=== PATIENT | female | born 1945 | race Caucasian/White ===

== ENCOUNTER 2017-12-08 21:49 | Emergency (ER) | payer MEDICARE ==
[2017-12-08] MEDS ORDERED: Amoxicillin/Clavulanate TAB* 875 MG PO ONE (22:05)
[2017-12-09 01:22] VITALS: BP 148/87
--- NOTE | 2017-12-10 11:22 | ED ---
Everette Rabago Rebecca, scribed for Jose Luis Moralez MD on 12/08/17 at 2219 . Lower Extremity - HPI Summary HPI Summary: Pt is a 72 y/o F BIBA who presents to ED c/o LLE laceration s/p fall. Pt reports that tonight she was about to have dinner when she fell on her end table , causing a laceration. Reports she could not get the bleeding to stop, which is why she called her [id number] who called EMS. Patient was able to get herself up after the fall. Negative head trauma. Denies CP, SOB, abdominal pain and LOC. Confirms her Tetanus is UTD and she is not on blood thinners. PMHx Parkinsons. - History of Current Complaint Chief Complaint: EDSoftTissueLowExtr Stated Complaint: LT LEG LAC Time Seen by Provider: 12/08/17 21:52 Hx Obtained From: Patient Mechanism Of Injury: Fall From A Standing Position Onset of Pain: Prior to Arrival Severity Currently: Moderate Pain Intensity: 4 Pain Scale Used: 0-10 Numeric Location: Is Discrete @ - Left lower extremity Associated Signs And Symptoms: Positive: Other - Laceration - Allergies/Home Medications Allergies/Adverse Reactions: Allergies Allergy/AdvReac Type Severity Reaction Status Date / Time No Known Allergies Allergy Verified 05/11/15 10:31 PMH/Surg Hx/FS Hx/Imm Hx Endocrine/Hematology History: Reports: Hx Diabetes - ON ORAL MEDS, Hx Thyroid Disease - ON SYNTHROID Cardiovascular History: Reports: Hx Angina Denies: Hx Hypertension, Hx Pacemaker/ICD Respiratory History: Reports: Hx Asthma - COPD GI History: Reports: Hx Hiatal Hernia - ON DAILY MEDS Musculoskeletal History: Reports: Hx Arthritis - GENERALIZED, Hx Bursitis - BACK Sensory History: Reports: Hx Cataracts - BILATERAL Denies: Hx Hearing Aid Opthamlomology History: Reports: Hx Cataracts - BILATERAL Neurological History: Denies: Other Neuro Impairments/Disorders Psychiatric History: Reports: Hx Anxiety - ON DAILY MEDS, Hx Panic Disorder - Surgical History Surgery Procedure, Year, and Place: 2005 LIVER BIOPSY [place]. 1994 DEVIATED SEPTUM [id number]. BILATERAL ORIF [place] 2005 Hx Anesthesia Reactions: No - Immunization History Date of Tetanus Vaccine: 2015 Infectious Disease History: No Infectious Disease History: Denies: Traveled Outside the [place] in Last 30 Days - Family History Known Family History: Positive: Diabetes, Other - Glaucoma - Social History Alcohol Use: None Substance Use Type: Reports: None Smoking Status (MU): Never Smoked Tobacco Type: Cigarettes Amount Used/How Often: 1/2PPWEEK 30 YRS Have You Smoked in the Last Year: No Review of Systems Negative: Chest Pain Negative: Shortness Of Breath Negative: Abdominal Pain Positive: Other - LLE laceration Neurological: Other - NEGATIVE: LOC All Other Systems Reviewed And Are Negative: Yes Physical Exam - Summary Physical Exam Summary: Appearance: Well appearing, no pain distress Skin: warm, dry, 7 cm. linear laceration to the anterior distal left lower leg, bleeding has stopped and she has soft tissue fat protruding from the wound with some ecchymosis surrounding it Head/face: normal, no evidence of trauma to the head, no hematoma Eyes: EOMI, FACUNDO ENT: normal Neck: supple, non-tender Respiratory: CTA, breath sounds present Cardiovascular: RRR, pulses symmetrical Abdomen: non-tender, soft Bowel Sounds: present Musculoskeletal: strength/ROM intact, no resting tremor, no pain with leg roll, chronic edema in both LE Neuro: normal, sensory motor intact, A&Ox3 Triage Information Reviewed: Yes Vital Signs On Initial Exam: Initial Vitals Temp Pulse Resp BP Pulse Ox 98.0 F 71 15 111/53 95 12/08/17 22:07 12/08/17 22:07 12/08/17 22:07 12/08/17 22:07 12/08/17 22:07 Vital Signs Reviewed: Yes Procedures - Laceration/Wound Repair 1 Location: lower extremity - Left lower extremity Description: Linear Anesthesia: 1.0%, Lido - 5 cc Length, Depth and Shape: 7 cm Betadine Prep?: No - chlorhexidine Irrigated w/ Saline (ccs): 500 Laceration/Wound Explored: clean, no foreign body removed Closure: Multilayer Debridement: minimal - fat debridement Suture Type: Vicryl - 4 3-0 vicryl sutures on the subcutaneous layer; 12 vertical mattress sutures of 3-0 Prolene for the skin Layer Closure?: Yes Sterile Dressing Applied?: Yes - Xeroform gauze then 4x4 guaze, roll gauze and then coved with Coban. Diagnostics - Vital Signs Vital Signs Temp Pulse Resp BP Pulse Ox 12/08/17 22:07 98.0 F 71 15 111/53 95 - Laboratory Lab Statement: Any lab studies that have been ordered have been reviewed, and results considered in the medical decision making process. Lower Extremity Course/Dx - Course Course Of Treatment: Pt with injury to LLE on table edge lacerating the low anterior horvath. Td utd. Wound irrigated and repaired in layers. Complex repair given the area of laceration and the thin skin. Required dermal closure and wide vert mattress sutures. - Diagnoses Provider Diagnoses: Laceration of left lower extremity Discharge - Sign-Out/Discharge Documenting (check all that apply): Discharge - Discharge - Discharge Plan Condition: Good Disposition: HOME Prescriptions: Cephalexin CAP* [Keflex CAP*] 500 mg PO TID #30 cap Patient Education Materials: Laceration (ED) Referrals: Charlie Jeter MD [Primary Care Provider] - Additional Instructions: Suture removal in 14 days. Change dressing in 2 days then daily thereafter. Keep clean and dry. Return with concern for infection, worse or other concerns. It will turn black and blue. - Billing Disposition and Condition Condition: GOOD Disposition: HOME The documentation as recorded by the Everette villanueva Rebecca accurately reflects the service I personally performed and the decisions made by Naomy bradford Kirk, MD.
== END 2017-12-09 | disposition home or self-care (01) ==
LOC: ED 21:49
DX: S81.812A Laceration without foreign body, left lower leg, initial encounter (principal); W18.09XA Striking against other object with subsequent fall, initial encounter; Y93.89 Activity, other specified; Y92.009 Unspecified place in unspecified non-institutional (private) residence as the place of occurrence of the external cause; G20 Parkinson's disease; E11.9 Type 2 diabetes mellitus without complications; Z79.84 Long term (current) use of oral hypoglycemic drugs; E07.9 Disorder of thyroid, unspecified; I20.9 Angina pectoris, unspecified; J44.9 Chronic obstructive pulmonary disease, unspecified; K44.9 Diaphragmatic hernia without obstruction or gangrene; F41.0 Panic disorder [episodic paroxysmal anxiety]
CPT/HCPCS: 13121; 99282; A9270-GY

== ENCOUNTER 2018-07-22 12:31 | Emergency (ER) | payer MEDICARE ==
--- OUTSIDE RECORDS SUMMARY | 2018-07-22 12:48 | XMS REPORT ---
:1945 Author Organization [facility] Address [address] [place] [address] Care Team Providers Name Role Phone Demarco Boyle Unavailable Unavailable PROBLEMS Type Condition ICD9-CM Code TUQ29-DY Code Onset Condition SNOMED Code Dates Status Problem Hypothyroidism, E03.9 Active 95533652 unspecified type Problem Depression, F32.9 Active 18602369 unspecified depression type Problem Insomnia, G47.00 Active 405219857 unspecified type Problem Tinea corporis B35.4 Active 49678156 Problem Pancytopenia D61.818 Active 031350522 Problem Uncomplicated J45.909 Active 23266749 asthma, unspecified asthma severity Problem Parkinsons disease G20 Active 06959463 Problem Obesity, morbid, E66.01 Active 678344139 BMI 50 or higher Problem Body mass index Z68.43 Active 584394313 (BMI) of 50-59.9 in adult Problem Essential I10 Active 98591651 hypertension Problem Chronic gout of M1A.0790 Active 32413988 foot, unspecified cause, unspecified laterality Problem Traumatic S06.300S Active 89392511 intracranial hemorrhage without loss of consciousness, sequela Problem Nerve pain M79.2 Active 88565224 Problem Chronic GERD K21.9 Active 245875625 Problem Personal history Z86.69 Active 608854694 of seizure disorder Problem Type 2 diabetes E11.9 Active 460162456 mellitus without complication, without long-term current use of insulin ALLERGIES No Information ENCOUNTERS Encounter Location Date Diagnosis [facility] [address] [facility] [address], [place] [address] Jun, [place] [address] [facility] [address] [facility] [place] [address] [facility] [address] [facility] [place], Jun, Type 2 [place] [address] without complication, without long-term current use of insulin E11.[address] Jun, Type 2 [place] [address] without complication, without long-term current use of insulin E11.9 [facility] [address] [place] [address] [place], [place] [address] [facility] [address] [place] [address] [place], Jun, Type 2 [place] [address] without complication, without long-term current use of insulin E11.9 ; Parkinsons disease G20 ; Essential hypertension I10 ; Obesity, morbid, BMI 50 or higher E66.01 and Body mass index (BMI) of 50-59.9 in adult Z68.43 [facility] [address] [place] [address] [place], [place] [address] [facility] [address] [place], [place], [facility] [place] [address] [facility] [address] [place] [address] [place] [address] [place] [address] [facility] [address] [place] [address] [place] [address] [facility] [address] [place] [address] [place] [address] Feb, [place] [address] [facility] [address] [place] [address] [place], [place] [address] Jan, [place] [address] Jan, [place] [address] [facility] [address] [facility] Jan, [place] [address] [facility] [address] [facility] Jan, [place] [address] [place], Jan, Type 2 [place] [address] without complication, without long-term current use of insulin E11.9 ; Parkinsons disease G20 ; Essential hypertension I10 ; Uncomplicated asthma, unspecified asthma severity J45.909 ; Depression, unspecified depression type F32.9 ; Obesity, morbid, BMI 50 or higher E66.01 and Body mass index (BMI) of 50-59.9 in adult Z68.43 [facility] [address] [place] [address] [place], [place] [address] Jan, [place] [address] [facility] [address] [place] [address] [address] December, [place] [address] [facility] [address] [place] [address] [place], [place] [address] December, [place] [address] [place] [address] [place] [address], [place] [address] [place], December, [place] [address] leg, subsequent encounter S81.812D ; Risk for falls Z91.81 ; Type 2 diabetes mellitus without complication, without long-term current use of insulin E11.9 ; Screening for breast cancer Z12.31 ; Screening for colon cancer Z12.11 and Osteoporosis screening Z13.820 [facility] [address] [place] [address], [place] [address] Nov, [place] [address] Nov, [facility] [address] [place], Nov, [place] [address] extremity, subsequent encounter S81.812D ; Dependent edema R60.9 and At risk for fall due to comorbid condition Z91.[address] Nov, [place] [address] Nov, [place] [address] [facility] [address] [place] [address] [place], [place] [address] Nov, [facility] [place] [address] [facility] [address] [place] [address] [place], [place] [address] [place], Oct, Injury [place] [address] encounter [address]90XA [address] [place], [place] [address] [place], Oct, Injury [place] [address] encounter S09.90XA ; Fall, initial encounter W19.XXXA and Pitting edema R60.9 [facility] [address] [place] [address] Sep, [place] [address] [facility] [address] [place] [address] Sep, [place] [address] Aug, Dependent edema R60.9 [facility] [place] [address] [place], Aug, Dependent [place] R60.9 [place] [address] [place], Aug, Dependent edema R60.9 [place] [address] Risk for falls Z91.[address] [place], [place] [address] [place], [place] [address] Aug, [place] [address] Jul, [facility] [place] [address] Jul, [facility] [place] [address] [place], [place] [address] [place], Jul, [place], [place] [address] [address] [place], Jul, Type 2 [place] [address] without complication, without long-term current use of insulin E11.9 ; Hypothyroidism, unspecified type E03.9 ; Pancytopenia D61.818 ; Dependent edema R60.9 ; Screening, lipid Z13.220 and Parkinsons disease G20 [address] Jun, [place] [address] [facility] [address] [place] [address] [address] [place] [address] [place], [facility] [place] [address] Jun, [facility] [place] [address] [place], [place] [address] [place], Jun, Pancytopenia D61.818 [place] [address] [facility] [address] [facility] May, [place] [address] [place], May, T[place] B35.4 [place] [address] [place], May, [place] [address] complication B02.9 ; Pancytopenia D61.818 ; Tinea corporis B35.4 and Elevated BUN R79.[address] [place], Apr, [place] [address] complication B02.9 [facility] [address] [place] [address] [address] [place] [address] [place], [place] [address] [place], Apr, Parkinsons disease G20 ; [place] [address] Left upper quadrant pain R10.12 ; Essential hypertension I10 ; Type 2 diabetes mellitus without complication, without long-term current use of insulin E11.9 ; Hypothyroidism, unspecified type E03.9 ; Morbid (severe) obesity due to excess calories E66.01 and Body mass index (BMI) of 50-59.9 in adult Z68.[address] Apr, [facility] [place] [address] [place] [address] [place], [facility] [place] [address] [place], [place] [address] [place], [place] [address] [place], Insomnia, unspecified type [facility] [place] [address] G47.00 ; Essential hypertension I10 ; Depression, unspecified depression type F32.9 ; Type 2 diabetes mellitus without complication, without long-term current use of insulin E11.9 ; Chronic gout of foot, unspecified cause, unspecified laterality M1A.0790 ; Parkinsons disease G20 ; Uncomplicated asthma, unspecified asthma severity J45.909 ; Hypothyroidism, unspecified type E03.9 ; Chronic GERD K21.9 ; Personal history of seizure disorder Z86.69 and Nerve pain M79.[address], [place], [address], [place], Encounter to establish [facility] care Z76.89 ; Type 2 diabetes mellitus without complication, without long-term current use of insulin E11.9 ; Traumatic intracranial hemorrhage without loss of consciousness, sequela S06.300S ; Parkinsons disease G20 ; Hypothyroidism, unspecified type E03.9 ; Chronic gout of foot, unspecified cause, unspecified laterality M1A.0790 ; Depression, unspecified depression type F32.9 ; Essential hypertension I10 ; Insomnia, unspecified type G47.00 ; Nerve pain M79.2 ; Personal history of seizure disorder Z86.69 ; Chronic GERD K21.9 and Uncomplicated asthma, unspecified asthma severity J45.909 IMMUNIZATIONS No Known Immunizations SOCIAL HISTORY Never Assessed REASON FOR REFERRAL FUNCTIONAL STATUS PLAN OF CARE VITAL SIGNS MEDICATIONS Unknown Medications PROCEDURES No Known procedures RESULTS No Results REASON FOR VISIT labs Insurance Providers [facility] Health Member Patient Patient Patient Patient Patient Subscriber Subscriber Subscriber Group Insurance Plan Plan Plan Plan ID Relationship Address Phone Name Date of ID Name Date of No Type Insurance Insurance Insurance Coverage to Subscriber Address Phone Name Dates Case [phone] Case self Mandy [id number] Management [place] [phone] [facility] self Mandy [id number] Medicare [id number] Medicare [place] [employer] [place] [employer] RPPO [id number] RPPO Case Man [phone] Case Man self Mandy [id number] [facility] [place] [address] [place] [address] [employer] Voucher Case [phone] Case self Mandy [id number] Management [place] [address] MEDICAL (GENERAL) HISTORY Type Description Date Medical History diabetes type 2 Medical History hearing aids Medical History "brain bleed" 07/2016 Medical History Parkinson's Medical History Depression Surgical History both legs surgery, fractured on a fall on stairs 2001 Hospitalization History of child
--- OUTSIDE RECORDS SUMMARY | 2018-07-22 12:48 | XMS REPORT ---
:1945 Author Organization [facility] Address [address] [place] [address] Care Team Providers Name Role Phone Demarco Boyle Unavailable Unavailable PROBLEMS Type Condition ICD9-CM Code [id number] Code Onset Condition SNOMED Code Dates Status Problem Hypothyroidism, E03.9 Active 82615136 unspecified type Problem Depression, F32.9 Active 74360597 unspecified depression type Problem Insomnia, G47.00 Active 360641355 unspecified type Problem Tinea corporis B35.4 Active 34500660 Problem Pancytopenia D61.818 Active 285608638 Problem Uncomplicated J45.909 Active 18941148 asthma, unspecified asthma severity Problem Parkinsons disease G20 Active 65469744 Problem Obesity, morbid, E66.01 Active 237865664 BMI 50 or higher Problem Body mass index Z68.43 Active 256397232 (BMI) of 50-59.9 in adult Problem Essential I10 Active 73425548 hypertension Problem Chronic gout of M1A.0790 Active 62801453 foot, unspecified cause, unspecified laterality Problem Traumatic S06.300S Active 31121205 intracranial hemorrhage without loss of consciousness, sequela Problem Nerve pain M79.2 Active 97571076 Problem Chronic GERD K21.9 Active 733798545 Problem Personal history Z86.69 Active 890300423 of seizure disorder Problem Type 2 diabetes E11.9 Active 029351498 mellitus without complication, without long-term current use of insulin ALLERGIES No Information ENCOUNTERS Encounter Location Date Diagnosis [facility] [address] [facility] Jun, [place] [address] Jun, [place] [address] [facility] [address] [facility] [place] [address] [facility] [address] [facility] [place], Jun, Type 2 [place] [address] without complication, without long-term current use of insulin E11.[address] Jun, Type 2 [place] [address] without complication, without long-term current use of insulin E11.9 [facility] [address] [place] [address] [place], [place] [address] [facility] [address] [place] [address] [place], Jun, [place] 2 [place] [address] without complication, without long-term current use of insulin E11.9 ; Parkinsons disease G20 ; Essential hypertension I10 ; Obesity, morbid, BMI 50 or higher E66.01 and Body mass index (BMI) of 50-59.9 in adult Z68.43 [facility] [address] [place] [address] [place], [place] [address] [facility] [address] [place], Mar, [place] [address] [facility] [address] [place] [address] [place] [address] [place], [place] [address] [facility] [address] [place] [address] [place], [place] [address] [facility] [address] [place] [address] [place], [place] [address] Feb, [place] [address] [facility] [address] [place] [address] [place] [address] Jan, [place] [address] Jan, [place] [address] [facility] [address] [facility] Jan, [place] [address] [facility] [address] [facility] Jan, [place] [address] [place], Jan, [place] 2 [place] [address] without complication, without long-term current use of insulin E11.9 ; Parkinsons disease G20 ; Essential hypertension I10 ; Uncomplicated asthma, unspecified asthma severity J45.909 ; Depression, unspecified depression type F32.9 ; Obesity, morbid, BMI 50 or higher E66.01 and Body mass index (BMI) of 50-59.9 in adult Z68.43 [facility] [address] [place] [address] [place], [place] [address] Jan, [place] [address] [facility] [address] [place] [address] [address] December, [place] [address] [facility] [address] [place] [address] [place], [place] [address] December, [place] [address] [place] [address] [place] [address], [place] [address] [place], [place], [place] [address] leg, subsequent encounter S81.812D ; Risk for falls Z91.81 ; Type 2 diabetes mellitus without complication, without long-term current use of insulin E11.9 ; Screening for breast cancer Z12.31 ; Screening for colon cancer Z12.11 and Osteoporosis screening Z13.820 [facility] [address] [place] [address], [place] [address] Nov, [place] [address] Nov, [facility] [address] [place], Nov, [place] [address] extremity, subsequent encounter S81.812D ; Dependent edema R60.9 and At risk for fall due to comorbid condition Z91.[address] Nov, [place] [address] Nov, [place] [address] [facility] [address] [place] [address] [place], [place] [address] Nov, [facility] [address] [facility] [address] [place] [address] [place], [place] [address] [place], Oct, [place] [address] encounter S09.90XA [address] [place], [place] [address] [place], Oct, [place] [address] encounter S09.90XA ; Fall, initial encounter W19.XXXA and Pitting edema R60.9 [facility] [address] [place] [address] Sep, [place] [address] [facility] [address] [place] [address] Sep, [place] [address] Aug, Dependent edema R60.9 [facility] [place] [address] [place], Aug, D[place] R[place] [address] [place], Aug, Dependent edema R60.9 [place] [address] Risk for falls Z91.[address] [place], [place] [address] [place], [place] [address] Aug, [place] [address] Jul, [facility] [place] [address] Jul, [place] [address] [place], [place] [address] [place], Jul, [place], [place] [address] [place], Jul, Type 2 [place] [address] without complication, without long-term current use of insulin E11.9 ; Hypothyroidism, unspecified type E03.9 ; Pancytopenia D61.818 ; Dependent edema R60.9 ; Screening, lipid Z13.220 and Parkinsons disease G20 [address] Jun, [place] [address] [facility] [address] [place] [address] [address], [address] [place] [address] [place], [facility] [place] [address] Jun, [facility] [place] [address] [place], [place] [address] [place], Jun, [place] D61[place] [address] [facility] [address] [facility] May, [place] [address] [place], May, [place] [address] [place], May, [place] [address] complication B02.9 ; Pancytopenia D61.818 ; Tinea corporis B35.4 and Elevated BUN R79.[address] [place], Apr, [place] [address] complication B02.9 [facility] [address] [place] [address] [address] Apr, [address] [place] [address] [place], [place] [address] [place], Apr, Parkinsons disease G20 ; [place] [address] Left upper quadrant pain R10.12 ; Essential hypertension I10 ; Type 2 diabetes mellitus without complication, without long-term current use of insulin E11.9 ; Hypothyroidism, unspecified type E03.9 ; Morbid (severe) obesity due to excess calories E66.01 and Body mass index (BMI) of 50-59.9 in adult Z68.[address] [place] Apr, [place] [address] [place] [address] Mar, [facility] [place] [address] [place], [place] [address] [place], [place] [address] Mar, Insomnia, unspecified type [facility] [place] [address] G47.00 ; Essential hypertension I10 ; Depression, [...] seizure disorder Z86.69 and Nerve pain M79.[address], Mar, [address], Mar, Encounter to establish [place] [address] care Z76.89 ; Type 2 diabetes mellitus [...] FOR REFERRAL FUNCTIONAL STATUS PLAN OF CARE Activity Details Pending Test -CBC W/ DIFF and PLT Pending Test -COMPREHENSIVE METABOLIC PANEL W/EGFR VITAL SIGNS MEDICATIONS Medication Instructions Dosage Frequency Start End Date Duration Status Date MetFORMIN HCl Orally Once a day 1 tab(s) 24h 30 day(s) Active ER 500 mg Furosemide 40 Orally Once a day 1 tablet 24h 30 days Active mg PROCEDURES No Known procedures RESULTS No Results REASON FOR VISIT med refill Insurance Providers [facility] Member Patient Patient Patient Patient Patient Subscriber Subscriber Subscriber Group Insurance Plan Plan Plan Plan ID Relationship Address Phone Name Date of ID Name Date of No Type Insurance Insurance Insurance Coverage to Subscriber Address Phone Name Dates Case [phone] Case self Mandy [id number] Management [place] [address] Case [phone] Case self Mandy [id number] [facility] [place] [address] Case Man [phone] Case Man self Mandy [id number] [employer] [place] [address] [place] [address] [employer] Voucher Voucher [facility] [phone] [facility] self Mandy [id number] Medicare [id number] Medicare [place] [employer] [facility] Solutions RPPO [id number] RPPO MEDICAL (GENERAL) HISTORY Type Description Date Medical History diabetes type 2 Medical History hearing aids Medical History "brain bleed" 07/2016 Medical History Parkinson's Medical History Depression Surgical History both legs surgery, fractured on a fall on stairs 2001 Hospitalization History of child
--- OUTSIDE RECORDS SUMMARY | 2018-07-22 12:48 | XMS REPORT ---
:1945 Author Organization [facility] Address [address] [place] [address] Care Team Providers Name Role Phone Demarco Boyle Unavailable Unavailable PROBLEMS Type Condition ICD9-CM Code [id number] Code Onset Condition SNOMED Code Dates Status Problem Hypothyroidism, E03.9 Active 37616507 unspecified type Problem Depression, F32.9 Active 87853945 unspecified depression type Problem Insomnia, G47.00 Active 041013191 unspecified type Problem Tinea corporis B35.4 Active 73943583 Problem Pancytopenia D61.818 Active 310228513 Problem Uncomplicated J45.909 Active 61682429 asthma, unspecified asthma severity Problem Parkinsons disease G20 Active 09483689 Problem Obesity, morbid, E66.01 Active 599091543 BMI 50 or higher Problem Body mass index Z68.43 Active 571621456 (BMI) of 50-59.9 in adult Problem Essential I10 Active 94603454 hypertension Problem Chronic gout of M1A.0790 Active 62003839 foot, unspecified cause, unspecified laterality Problem Traumatic S06.300S Active 39042516 intracranial hemorrhage without loss of consciousness, sequela Problem Nerve pain M79.2 Active 42686724 Problem Chronic GERD K21.9 Active 802854258 Problem Personal history Z86.69 Active 888494435 of seizure disorder Problem Type 2 diabetes E11.9 Active 545221322 mellitus without complication, without long-term current use of insulin ALLERGIES No Information ENCOUNTERS Encounter Location Date Diagnosis [facility] [address] [facility] Jun, [place] [address] Jun, [place] [address] [facility] [address] [facility] [place] [address] [facility] [address] [facility] [place], Jun, Type 2 [place] [address] without complication, without long-term current use of insulin E11.[address] Jun, Type 2 [place] [address] without complication, without long-term current use of insulin E11.9 [facility] [address] [place] [address] [place], [place] [address] [facility] [address] [place] [address] [place], Jun, Type 2 [place] [address] without complication, without long-term current use of insulin E11.9 ; Parkinsons disease G20 ; Essential hypertension I10 ; Obesity, morbid, BMI 50 or higher E66.01 and Body mass index (BMI) of 50-59.9 in adult Z68.43 [facility] [address] [place] [address] [place], [place] [address] [facility] [address] [place], [place], [place] [address] [facility] [address] [place] [address] [place], [place] [address] [place], [place] [address] [facility] [address] [place] [address] [place], [place] [address] [facility] [address] [place] [address] [place], [place] [address] Feb, [place] [address] [facility] [address] [place] [address] [place], [place] [address] Jan, [place] [address] Jan, [place] [address] [facility] [address] [facility] Jan, [place] [address] [facility] [address] [facility] Jan, [place] [address] [place], Jan, Type 2 [place] [address] without complication, without long-term current use of insulin E11.9 ; Parkinsons disease G20 ; Essential hypertension I10 ; Uncomplicated asthma, unspecified asthma severity J45.909 ; Depression, unspecified depression type F32.9 ; Obesity, morbid, BMI 50 or higher E66.01 and Body mass index (BMI) of 50-59.9 in adult Z68.43 [facility] [address] [place] [address] [place], [place] [address] Jan, [place] [address] [facility] [address] [place] [address], [place] [address] December, [place] [address] [facility] [address] [place] [address] [place], [place] [address] December, [place] [address] [place] [address] [place] [address], [place] [address] [place], [place], [place] [address] leg, subsequent encounter S81.812D ; Risk for falls Z91.81 ; Type 2 diabetes mellitus without complication, without long-term current use of insulin E11.9 ; Screening for breast cancer Z12.31 ; Screening for colon cancer Z12.11 and Osteoporosis screening Z13.820 [facility] [address] [place] [address], [place] [address] Nov, [place] [address] Nov, [facility] [address] [place], Nov, [place] [address] extremity, subsequent encounter S81.812D ; Dependent edema R60.9 and At risk for fall due to comorbid condition Z91.[address] Nov, [place] [address] Nov, [place] [address] [facility] [address] [place] [address] [place], [place] [address] Nov, [facility] [address] [facility] [address] [place] [address] [place], [place] [address] [place], Oct, Injury [place] [address] encounter S09.90XA [address] [place], [place] [address] [place], Oct, [place] [address] encounter S09.90XA ; Fall, initial encounter W19.XXXA and Pitting edema R60.9 [facility] [address] [place] [address] Sep, [place] [address] [facility] [address] [place] [address] Sep, [place] [address] Aug, Dependent edema R60.9 [place] [address] [place], Aug, Dependent [place] R60.9 [place] [address] [place], Aug, Dependent edema R60.9 [place] [address] Risk for falls Z91.[address] [place], [place] [address] [place], [place] [address] Aug, [place] [address] Jul, [place] [address] Jul, [place] [address] [place], [place] [address] [place], Jul, [place], [place] [address] [address] [place], Jul, Type 2 [place] [address] without complication, without long-term current use of insulin E11.9 ; Hypothyroidism, unspecified type E03.9 ; Pancytopenia D61.818 ; Dependent edema R60.9 ; Screening, lipid Z13.220 and Parkinsons disease G20 [address] Jun, [place] [address] [facility] [address] [place] [address] [address], [address] [place] [address] [place], [facility] [address] Jun, [facility] [place] [address] [place], [place] [address] [place], Jun, Pancytopenia D61.818 [place] [address] [facility] [address] [facility] May, [place] [address] [place], May, Tinea corpor[place] B35.4 [place] [address] [place], [place], [place] [address] complication B02.9 ; Pancytopenia D61.818 ; Tinea corporis B35.4 and Elevated BUN R79.[address] [place], Apr, [place] [address] complication B02.9 [facility] [address] [place] [address] [address], [address] [place] [address] [place], [place] [address] [place], Apr, Parkinsons disease G20 ; [place] [address] Left upper quadrant pain R10.12 ; Essential hypertension I10 ; Type 2 diabetes mellitus without complication, without long-term current use of insulin E11.9 ; Hypothyroidism, unspecified type E03.9 ; Morbid (severe) obesity due to excess calories E66.01 and Body mass index (BMI) of 50-59.9 in adult Z68.[address] Apr, [place] [address] [place] [address] Mar, [facility] [place] [address] [place], [place] [address] [place], [place] [address] [place], Insomnia, unspecified type [facility] [place] [address] G47.00 ; Essential hypertension I10 ; Depression, [...] seizure disorder Z86.69 and Nerve pain M79.[address], [place], [address], Mar, Encounter to establish [place] [address] care Z76.89 ; Type 2 diabetes mellitus [...] procedures RESULTS No Results REASON FOR VISIT Information Request Insurance Providers [facility] Member Patient Patient Patient Patient Patient Subscriber Subscriber Subscriber Group Insurance Plan Plan Plan Plan ID Relationship Address Phone Name Date of ID Name Date of No Type Insurance Insurance Insurance Coverage to Subscriber Address Phone Name Dates Case Man [phone] Case Man self Mandy [id number] [facility] [place] [address] [place] [address] [employer] Voucher Voucher [facility] [phone] [facility] self Mandy [id number] Medicare [id number] Medicare [place] [employer] [place] [employer] [place] [employer] RPPO [id number] RPPO Case [phone] Case self Mandy [id number] Management [place] 02 [facility] [address] [facility] Case [phone] Case self Mandy [id number] Management [place] [address] MEDICAL (GENERAL) HISTORY Type Description Date Medical History diabetes type 2 Medical History hearing aids Medical History "brain bleed" 07/2016 Medical History Parkinson's Medical History Depression Surgical History both legs surgery, fractured on a fall on stairs 2001 Hospitalization History of child
--- OUTSIDE RECORDS SUMMARY | 2018-07-22 12:48 | XMS REPORT ---
:1945 Author Organization [facility] Address [address] [place] [address] Care Team Providers Name Role Phone Demarco Boyle Unavailable Unavailable PROBLEMS Type Condition ICD9-CM Code [id number] Code Onset Condition SNOMED Code Dates Status Problem Hypothyroidism, E03.9 Active 98600202 unspecified type Problem Depression, F32.9 Active 25812274 unspecified depression type Problem Insomnia, G47.00 Active 098898104 unspecified type Problem Tinea corporis B35.4 Active 48566380 Problem Pancytopenia D61.818 Active 770796648 Problem Uncomplicated J45.909 Active 87169931 asthma, unspecified asthma severity Problem Parkinsons disease G20 Active 43850559 Problem Obesity, morbid, E66.01 Active 710773286 BMI 50 or higher Problem Body mass index Z68.43 Active 544335467 (BMI) of 50-59.9 in adult Problem Essential I10 Active 58568788 hypertension Problem Chronic gout of M1A.0790 Active 67010338 foot, unspecified cause, unspecified laterality Problem Traumatic S06.300S Active 69758052 intracranial hemorrhage without loss of consciousness, sequela Problem Nerve pain M79.2 Active 31953542 Problem Chronic GERD K21.9 Active 034853942 Problem Personal history Z86.69 Active 692351247 of seizure disorder Problem Type 2 diabetes E11.9 Active 928996952 mellitus without complication, without long-term current use of insulin ALLERGIES No Information ENCOUNTERS Encounter Location Date Diagnosis Formerly [facility] [address] [facility] Jun, [place] [address] Jun, [place] [address] [facility] [address] [place] [address] [facility] [address] [facility] [place], Jun, Type 2 [place] [address] without complication, without long-term current use of insulin E11.[address] Jun, Type 2 [place] [address] without complication, without long-term current use of insulin E11.9 [facility] [address] [place] [address] [place], [place] [address] [facility] [address] [place] [address] [place], Jun, Type 2 [place] [address] without complication, without long-term current use of insulin E11.9 ; Parkinsons disease G20 ; Essential hypertension I10 ; Obesity, morbid, BMI 50 or higher E66.01 and Body mass index (BMI) of 50-59.9 in adult Z68.43 [facility] [address] [place] [address] [place], [place] [address] [facility] [address] [place], Mar, [place] [address] [facility] [address] [place] [address] [place], [place] [address] [place] [address] [facility] [address] [place] [address] [place] [address] [facility] [address] [place] [address] [place], [place] [address] Feb, [place] [address] [facility] [address] [place] [address] [place], [place] [address] Jan, [place] [address] Jan, [place] [address] [facility] [address] [facility] Jan, [place] [address] [facility] [address] [facility] Jan, [place] [address] [place], Jan, [place] 2 [place] [address] without complication, without long-term current use of insulin E11.9 ; Parkinsons disease G20 ; Essential hypertension I10 ; Uncomplicated asthma, unspecified asthma severity J45.909 ; Depression, unspecified depression type F32.9 ; Obesity, morbid, BMI 50 or higher E66.01 and Body mass index (BMI) of 50-59.9 in adult Z68.43 [facility] [address] [place] [address] [place], [place] [address] Jan, [place] [address] [facility] [address] [place] [address] [address] December, [place] [address] [facility] [address] [place] [address] [place], [place] [address] December, [place] [address] [place] [address] [place] [address], [place] [address] [place], December, [place] [address] leg, subsequent encounter S81.812D ; Risk for falls Z91.81 ; Type 2 diabetes mellitus without complication, without long-term current use of insulin E11.9 ; Screening for breast cancer Z12.31 ; Screening for colon cancer Z12.11 and Osteoporosis screening Z13.820 [facility] [address] [place] [address], [place] [address] Nov, [place] [address] Nov, [facility] [address] [place], Nov, [place] [address] extremity, subsequent encounter S81.812D ; Dependent edema R60.9 and At risk for fall due to comorbid condition Z91.[address] Nov, [place] [address] Nov, [place] [address] [facility] [address] [place] [address] [place], [place] [address] Nov, [facility] [place] [address] [facility] [address] [place] [address] [place], [place] [address] [place], Oct, [place] [address] encounter [address]90XA [address] [place], [place] [address] [place], Oct, [place] [address] encounter S09.90XA ; Fall, initial encounter W19.XXXA and Pitting edema R60.9 [facility] [address] [place] [address] Sep, [place] [address] [facility] [address] [place] [address] Sep, [place] [address] Aug, Dependent edema R60.9 [facility] [place] [address] [place], Aug, D[place] R60.[place] [address] [place], Aug, Dependent edema R60.9 [place] [address] Risk for falls Z91.[address] [place], [place] [address] [place], [place] [address] Aug, [place] [address] Jul, [facility] [place] [address] Jul, [place] [address] [place], [place] [address] [place], Jul, [place], [place] [address] [address] [place], Jul, Type 2 [place] [address] without complication, without long-term current use of insulin E11.9 ; Hypothyroidism, unspecified type E03.9 ; Pancytopenia D61.818 ; Dependent edema R60.9 ; Screening, lipid Z13.220 and Parkinsons disease G20 [address] Jun, [place] [address] [facility] [address] [place] [address] [address], [address] [place] [address] [place], [facility] [place] [address] [place] Jun, [facility] [place] [address] [place], [place] [address] [place], Jun, [place]ancy[place] D61.[place] [address] [facility] [address] [facility] May, [place] [address] [place], May, Tinea [place] B35.[place] [address] [place], May, [place] [address] complication B02.9 ; Pancytopenia D61.818 ; Tinea corporis B35.4 and Elevated BUN R79.[address] [place], Apr, [place] [address] complication B02.9 [facility] [address] [place] [address] [address], [address] [place] [address] [place], [place] [address] [place], Apr, Parkinsons disease G20 ; [place] [address] Left upper quadrant pain R10.12 ; Essential hypertension I10 ; Type 2 diabetes mellitus without complication, without long-term current use of insulin E11.9 ; Hypothyroidism, unspecified type E03.9 ; Morbid (severe) obesity due to excess calories E66.01 and Body mass index (BMI) of 50-59.9 in adult Z68.[address] Apr, [facility] [place] [address] Danny [place] [address] Mar, [facility] [place] [address] [place], [place] [address] [place], [place] [address] Mar, Insomnia, unspecified type [facility] [place] [address] G47.00 ; Essential hypertension I10 ; Depression, [...] seizure disorder Z86.69 and Nerve pain M79.[address], Mar, [address], Mar, Encounter to establish [facility] care Z76.89 ; Type 2 diabetes mellitus [...] procedures RESULTS No Results REASON FOR VISIT Referral Request Insurance Providers [facility] Health Member Patient Patient Patient Patient Patient Subscriber Subscriber Subscriber Group Insurance Plan Plan Plan Plan ID Relationship Address Phone Name Date of ID Name Date of No Type Insurance Insurance Insurance Coverage to Subscriber Address Phone Name Dates Case [phone] Case self Mandy [id number] Management [place] [phone] [facility] self Mandy [id number] Medicare [id number] Medicare [place] [employer] [place] [employer] [place] [employer] RPPO [id number] RPPO Case [phone] Case self Mandy [id number] Management [place] [address] Case Man [phone] Case Man self Mandy [id number] [facility] [place] [address] [place] [address] [facility] Voucher Voucher MEDICAL (GENERAL) HISTORY Type Description Date Medical History diabetes type 2 Medical History hearing aids Medical History "brain bleed" 07/2016 Medical History Parkinson's Medical History Depression Surgical History both legs surgery, fractured on a fall on stairs 2001 Hospitalization History of child
--- OUTSIDE RECORDS SUMMARY | 2018-07-22 12:48 | XMS REPORT ---
:1945 Author Organization [facility] Address [address] [place] [address] Care Team Providers Name Role Phone Demarco Boyle Unavailable Unavailable PROBLEMS Type Condition ICD9-CM Code [id number] Code Onset Condition SNOMED Code Dates Status Problem Hypothyroidism, E03.9 Active 90956148 unspecified type Problem Depression, F32.9 Active 28380274 unspecified depression type Problem Insomnia, G47.00 Active 557653145 unspecified type Problem Tinea corporis B35.4 Active 66327665 Problem Pancytopenia D61.818 Active 280893395 Problem Uncomplicated J45.909 Active 34281146 asthma, unspecified asthma severity Problem Parkinsons disease G20 Active 88734746 Problem Obesity, morbid, E66.01 Active 343678010 BMI 50 or higher Problem Body mass index Z68.43 Active 392851597 (BMI) of 50-59.9 in adult Problem Essential I10 Active 29893511 hypertension Problem Chronic gout of M1A.0790 Active 80145765 foot, unspecified cause, unspecified laterality Problem Traumatic S06.300S Active 43087736 intracranial hemorrhage without loss of consciousness, sequela Problem Nerve pain M79.2 Active 49773679 Problem Chronic GERD K21.9 Active 849662561 Problem Personal history Z86.69 Active 270788803 of seizure disorder Problem Type 2 diabetes E11.9 Active 473992343 mellitus without complication, without long-term current use of insulin ALLERGIES No Information ENCOUNTERS Encounter Location Date Diagnosis [address] Jun, [place] [address] Jun, [place] [address] Jun, [place] [address] [facility] [address] [facility] [place], [place] [address] [facility] [address] [place] [address] [place], Jun, Type 2 [place] [address] without complication, without long-term current use of insulin E11.9 [place] [address] [facility] Jun, Type 2 [place] [address] without complication, without long-term current use of insulin E11.9 [facility] [address] [place], [place] [address] [facility] [address] [place] [address] [place], Jun, [place] 2 [place] [address] without complication, without long-term current use of insulin E11.9 ; Parkinsons disease G20 ; Essential hypertension I10 ; Obesity, morbid, BMI 50 or higher E66.01 and Body mass index (BMI) of 50-59.9 in adult Z68.43 [facility] [address] [place] [address] [place], [place] [address] [facility] [address] [place], [place], [place] [address] [facility] [address] [place], [place] [address] [facility] [address] [place] [address] [place] [address] [facility] [address] [place] [address] [place], [place] [address] [facility] [address] [place] [address] [place] [address] Feb, [place] [address] [facility] [address] [place] [address] [place], [place] [address] Jan, [place] [address] Jan, [place] [address] [facility] [address] [facility] Jan, [place] [address] [facility] [address] [facility] Jan, [place] [address] [facility] [address] [facility] [place], Jan, Type 2 [place] [address] without complication, without long-term current use of insulin E11.9 ; Parkinsons disease G20 ; Essential hypertension I10 ; Uncomplicated asthma, unspecified asthma severity J45.909 ; Depression, unspecified depression type F32.9 ; Obesity, morbid, BMI 50 or higher E66.01 and Body mass index (BMI) of 50-59.9 in adult Z68.43 [facility] [address] [facility] [place], [place] [address] Jan, [place] [address] [facility] [address] [facility] [place], [place] [address] December, [place] [address] [facility] [address] [facility] [place], [place] [address] December, [place] [address] [place] [address] [place] [address] [place], [place] [address] [facility] [address] [place] [address] [place], December, [place] [address] leg, subsequent encounter S81.812D ; Risk for falls Z91.81 ; Type 2 diabetes mellitus without complication, without long-term current use of insulin E11.9 ; Screening for breast cancer Z12.31 ; Screening for colon cancer Z12.11 and Osteoporosis screening Z13.820 [facility] [address] [facility] [place], [place] [address] [place] [address] Nov, [facility] [place] [address] [facility] [address] [facility] [place], Nov, [place] [address] extremity, subsequent encounter S81.812D ; Dependent edema R60.9 and At risk for fall due to comorbid condition Z91.[address] Nov, [place] [address] Nov, [place] [address] [facility] [address] [facility] [place], [place] [address] Nov, [place] [address] [facility] [address] [place] [address] [place], [place] [address] [place], Oct, [place] [address] encounter S09.90XA [address] [place], [place] [address] [place], Oct, [place] [address] encounter S09.90XA ; Fall, initial encounter W19.XXXA and Pitting edema R60.9 [facility] [address] [place] [address] Sep, [place] [address] [facility] [address] [place] [address] Sep, [place] [address] Aug, Dependent edema R60.9 [place] [address] [place], Aug, Dependent [place] R60.9 [place] [address] [place], Aug, Dependent edema R60.9 [place] [address] Risk for falls Z91.[address] [place], [place] [address] [place], [place] [address] Aug, [place] [address] Jul, [place] [address] Jul, [place] [address] [place], [place] [address] [place], Jul, [place], [place] [address] R60.[address] [place], Jul, Type 2 [place] [address] without complication, without long-term current use of insulin E11.9 ; Hypothyroidism, unspecified type E03.9 ; Pancytopenia D61.818 ; Dependent edema R60.9 ; Screening, lipid Z13.220 and Parkinsons disease G20 [address] Jun, [place] [address] [facility] [address] [place] [address] [address], [address] [place] [address] [facility] [address] [place], [facility] [place] [address] Jun, [facility] [place] [address] [facility] [address] [place], [place] [address] [facility] [address] [place], Jun, Pancy[place] D61.818 [place] [address] [facility] [address] [place], [place] [address] [facility] [address] [place] [address] [place], May, T[place] B35.4 [place] [address] [place], [place], [place] [address] complication B02.9 ; Pancytopenia D61.818 ; Tinea corporis B35.4 and Elevated BUN R79.[address] [place], Apr, [place] [address] complication B02.9 [place] [facility] [address] [facility] [address], [address] [place] [address] [facility] [address] [facility] [place], [place] [address] [facility] [address] [place] [address] [place], Apr, Parkinsons disease G20 ; [place] [address] Left upper quadrant pain R10.12 ; Essential hypertension I10 ; Type 2 diabetes mellitus without complication, without long-term current use of insulin E11.9 ; Hypothyroidism, unspecified type E03.9 ; Morbid (severe) obesity due to excess calories E66.01 and Body mass index (BMI) of 50-59.9 in adult Z68.43 [facility] [address] [place], [facility] [place] [address] Danny Orlando [address] Mar, [facility] [place] [address] [facility] [address] [place] [address] [place], [place] [address] [place], [place] [address] Mar, Insomnia, unspecified type [facility] [place] [address] G47.00 ; Essential hypertension I10 ; Depression, [...] seizure disorder Z86.69 and Nerve pain M79.[address], Mar, [address], Mar, Encounter to establish [place] [address] care Z76.89 ; Type 2 diabetes mellitus [...] Unknown Medications PROCEDURES No Known procedures RESULTS Name Result Date Reference Range -MICROALBUMIN,RANDOM URINE (W/CREAT) 2018-07-03 CREATININE,RANDOM URINE 60 20-320 MICROALBUMIN,RANDOM URINE 0.3 NOT ESTABLISHED MICROALBUMIN/CREAT RATIO 5.0 0.0-29.9 REASON FOR VISIT urine sample at [facility] request Insurance Providers [facility] Member Patient Patient Patient Patient Patient Subscriber Subscriber Subscriber Group Insurance Plan Plan Plan Plan ID Relationship Address Phone Name Date of ID Name Date of No Type Insurance Insurance Insurance Coverage to Subscriber Address Phone Name Dates Case [phone] Case self Mandy [id number] [facility] [place] [id number] [facility] Case Man [phone] Case Man self Mandy [id number] [facility] [place] [address] [place] Voucher Voucher Case [phone] Case self Mandy [id number] Management Danny [place] 02 Management [facility] [address] [facility] [phone] [facility] self Mandy [id number] Medicare [id number] Medicare [employer] [facility] Adv Solutions [facility] [place] [employer] RPPO [id number] RPPO MEDICAL (GENERAL) HISTORY Type Description Date Medical History diabetes type 2 Medical History hearing aids Medical History "brain bleed" 07/2016 Medical History Parkinson's Medical History Depression Surgical History both legs surgery, fractured on a fall on stairs 2001 Hospitalization History of child
--- OUTSIDE RECORDS SUMMARY | 2018-07-22 12:48 | XMS REPORT ---
:1945 Author Organization [facility] Address [address] [place] [address] Care Team Providers Name Role Phone Charlie Jeter Unavailable Unavailable PROBLEMS Type Condition ICD9-CM Code [id number] Code Onset Condition SNOMED Code Dates Status Problem Hypothyroidism, E03.9 Active 11243408 unspecified type Problem Depression, F32.9 Active 17407740 unspecified depression type Problem Insomnia, G47.00 Active 026991394 unspecified type Problem Tinea corporis B35.4 Active 18691315 Problem Pancytopenia D61.818 Active 201781446 Problem Uncomplicated J45.909 Active 23888517 asthma, unspecified asthma severity Problem Parkinsons disease G20 Active 29359802 Problem Obesity, morbid, E66.01 Active 183843602 BMI 50 or higher Problem Body mass index Z68.43 Active 276271554 (BMI) of 50-59.9 in adult Problem Essential I10 Active 76555908 hypertension Problem Chronic gout of M1A.0790 Active 92486016 foot, unspecified cause, unspecified laterality Problem Traumatic S06.300S Active 22778844 intracranial hemorrhage without loss of consciousness, sequela Problem Nerve pain M79.2 Active 45054455 Problem Chronic GERD K21.9 Active 296432203 Problem Personal history Z86.69 Active 277744650 of seizure disorder Problem Type 2 diabetes E11.9 Active 306663629 mellitus without complication, without long-term current use of insulin ALLERGIES Substance Reaction Event Type Date Status wheat stomach cramps Non Drug Allergy Jun, Active ENCOUNTERS Encounter Location Date Diagnosis [facility] [address] [facility] Jun, [place] [address] Jun, [place] [address] [facility] [address] [place], [place] [address] [facility] [address] [place], Jun, Type 2 [place] [address] without complication, without long-term current use of insulin E11.[address] Jun, Type 2 [place] [address] without complication, without long-term current use of insulin E11.9 [facility] [address] [place], [place] [address] [facility] [address] [place] [address] [place], Jun, Type 2 [place] [address] without complication, without long-term current use of insulin E11.9 ; Parkinsons disease G20 ; Essential hypertension I10 ; Obesity, morbid, BMI 50 or higher E66.01 and Body mass index (BMI) of 50-59.9 in adult Z68.43 [facility] [address] [place] [address] [place], [place] [address] [facility] [address] [place], [place] [address] [facility] [address] [place], [place] [address] [facility] [address] [place] [address] [place], [place] [address] [facility] [address] [place] [address] [place], [place] [address] [facility] [address] [place] [address] [place] [address] Feb, [place] [address] [facility] [address] [place] [address] [place], [place] [address] Jan, [place] [address] Jan, [place] [address] [facility] [address] [facility] Jan, [place] [address] [facility] [address] [facility] Jan, [place] [address] [place], Jan, Type 2 [place] [address] without complication, without long-term current use of insulin E11.9 ; Parkinsons disease G20 ; Essential hypertension I10 ; Uncomplicated asthma, unspecified asthma severity J45.909 ; Depression, unspecified depression type F32.9 ; Obesity, morbid, BMI 50 or higher E66.01 and Body mass index (BMI) of 50-59.9 in adult Z68.43 [facility] [address] [facility] [place], [place] [address] Jan, [place] [address] [facility] [address] [place] [address] [place], [place] [address] December, [place] [address] [facility] [address] [place] [address] [place], [place] [address] December, [place] [address] [place] [address] [place] [address], [place] [address] [place], December, [place] [address] leg, subsequent encounter S81.812D ; Risk for falls Z91.81 ; Type 2 diabetes mellitus without complication, without long-term current use of insulin E11.9 ; Screening for breast cancer Z12.31 ; Screening for colon cancer Z12.11 and Osteoporosis screening Z13.820 [facility] [address] [place] [address], [place] [address] Nov, [place] [address] Nov, [place] [address] [place], Nov, [place] [address] extremity, subsequent encounter S81.812D ; Dependent edema R60.9 and At risk for fall due to comorbid condition Z91.[address] Nov, [place] [address] Nov, [place] [address] [facility] [address] [place] [address] [place], [place] [address] Nov, [facility] [place] [address] [facility] [address] [place] [address] [place], [place] [address] [place], Oct, [place] [address] encounter S09.90XA [address] [place], [place] [address] [place], Oct, [place] [address] encounter S09.90XA ; Fall, initial encounter W19.XXXA and Pitting edema R60.9 [facility] [address] [facility] Sep, [place] [address] [facility] [address] [facility] Sep, [place] [address] Aug, Dependent edema R60.9 [facility] [place] [address] [place], Aug, [place] R60.9 [place] [address] [place], Aug, Dependent edema R60.9 [place] [address] Risk for falls Z91.[address] [place], [place] [address] [place], [place] [address] Aug, [place] [address] Jul, [facility] [place] [address] Jul, [facility] [place] [address] [place], [place] [address] [place], Jul, [place], [place] [address] [place], Jul, Type 2 [place] [address] without complication, without long-term current use of insulin E11.9 ; Hypothyroidism, unspecified type E03.9 ; Pancytopenia D61.818 ; Dependent edema R60.9 ; Screening, lipid Z13.220 and Parkinsons disease G20 [address] Jun, [place] [address] [facility] [address] [facility] [address] Jun, [address] [place] [address] [place] [address] [place], [facility] [place] [address] [place] Jun, [facility] [place] [address] [facility] [address] [facility] [place], [place] [address] [facility] [address] [place] [address] [place], Jun, [place]ancy[place] D61[place] [address] [facility] [address] [facility] May, [place] [address] [facility] [address] [place] [address] [place], May, [place] [address] [place], [place], [place] [address] complication B02.9 ; Pancytopenia D61.818 ; Tinea corporis B35.4 and Elevated BUN R79.[address] [place], Apr, [place] [address] complication B02.9 [facility] [address] [facility] [address] Apr, [address] [place] [address] [place], [place] [address] [place], Apr, Parkinsons disease G20 ; [place] [address] Left upper quadrant pain R10.12 ; Essential hypertension I10 ; Type 2 diabetes mellitus without complication, without long-term current use of insulin E11.9 ; Hypothyroidism, unspecified type E03.9 ; Morbid (severe) obesity due to excess calories E66.01 and Body mass index (BMI) of 50-59.9 in adult Z68.[address] [place] Apr, [facility] [place] [address] [place] [address] Mar, [facility] [place] [address] [facility] [address] [place] [address] [place], [place] [address] [place], [place] [address] Mar, Insomnia, unspecified type [facility] [place] [address] G47.00 ; Essential hypertension I10 ; Depression, [...] seizure disorder Z86.69 and Nerve pain M79.[address], Mar, [address], Mar, Encounter to establish [place] [address] care Z76.89 ; Type 2 diabetes mellitus [...] FUNCTIONAL STATUS PLAN OF CARE Activity Details Follow Up 3 Months Reason:DMII VITAL SIGNS Temperature 96.6 degrees Fahrenheit 2018-07-01 Heart Rate 18 2018-07-01 Weight 223.8 2018-07-01 Height 53.1 in 2018-07-01 BMI 55.80 kg/m2 2018-07-01 Oximetry 95 % 2018-07-01 Blood pressure systolic 125 mm Hg 2018-07-01 Blood pressure diastolic 79 mm Hg 2018-07-01 MEDICATIONS Medication Instructions Dosage Frequency Start End Duration Status Date Date Gabapentin 300 MG p.o. tid 1 cap(s) 8h 90 Active Clotrimazole 1 % APPLY TO 90 Unknown AFFECTED AREA(S) TWO TIMES DAILY Furosemide 40 MG Orally Once a 1 tablet 24h 30 days Active day Atenolol 50 mg Orally Once a 1/2 tab 24h 90 days Active day Aspir-81 81 MG Orally Once a 1 tablet 24h Active day Carbidopa-Levodop Orally TID 1 tablet 8h 90 days Active a ER 50-200 MG Acyclovir 800 MG Orally five 1 tablet Apr, 7 days Unknown times daily 2016 Vitamin D-3 1000 Orally Once a 1 capsule 24h Active UNIT day Vitamin C 500 mg Orally in 1 tablet 90 days Active afternoon Allopurinol 100 Orally Once a TAKE 1 24h 90 Active MG day TABLET BY MOUTH ONCE A DAY BuPROPion HCl ER Orally Twice a 1 tablet 12h Mar, Active (SR) 150 MG day 2016 Levetiracetam 500 TAKE 1 Active MG TABLET BY MOUTH TWICE A DAY Magnesium 400 MG Active Advair Diskus Inhalation 1 puff 12h 90 days Active 250-50 MCG/DOSE Twice a day Paroxetine HCl TAKE 1 90 Unknown TABLET BY MOUTH ONCE A DAY IN THE MORNING Mirtazapine 15 MG p.o. qhs 1 tab(s) 90 days Active Paroxetine HCl 20 p.o. qam 1 tab(s) 90 Active mg OneTouch Ultra External as as directed Apr, 90 days Active Blue - directed daily 2016 FreeStyle Lite In Vitro bid as directed 12h Feb, 90 days Active Test - 2018 Pepcid 20 mg Orally Once a 1 tablet at 24h 90 days Unknown day bedtime Levetiracetam 500 Orally Twice a 1 tablet 12h 90 days Unknown mg day Montelukast Orally HS Once 1 tablet 24h 90 days Active Sodium 10 mg a day MetFORMIN HCl ER Orally Once a 1 tab(s) 24h Active 500 mg day Levothyroxine Orally Once a 1 tablet 90 Active Sodium 75 MCG day in AM Risperidone 0.5 Orally HS 1 tablet 90 days Unknown MG PROCEDURES Procedure Date Ordered Result Body Site BLOOD PRESSURE, MEASURED Jul 01, 2018 Oxygen saturation results documented and reviewed Jul 01, 2018 BODY MASS INDEX DOCD Jul 01, 2018 SMOKING + 2ND HAND ASSESSED Jul 01, 2018 GLYCATED HEMOGLOBIN A1C Jul 01, 2018 RESULTS Name Result Date Reference Range -HbA1c - In House Test 2018-07-01 HbA1c 5.8 REASON FOR VISIT 4 mo Parkinsons/ DM., PVP; A1C,foot exam,microalbumin,offer flu,tetanus shots- [place], patient declined flu vaccine, unable to give urine sample Insurance Providers [facility] Health Member Patient Patient Patient Patient Patient Subscriber Subscriber Subscriber Group Insurance Plan Plan Plan Plan ID Relationship Address Phone Name Date of ID Name Date of No Type Insurance Insurance Insurance Coverage to Subscriber Address Phone Name Dates Case [phone] Case self Mandy [id number] Management [place] [address] Management [place] [id number] [facility] Case [phone] Case self Mandy [id number] Management [place] [id number] [facility] [phone] [facility] self Mandy [id number] Medicare [id number] Medicare [facility] Solutions [facility] Solutions RPPO [id number] RPPO Case Man [phone] Case Man self Mandy [id number] [facility] [address] Voucher Voucher MEDICAL (GENERAL) HISTORY Type Description Date Medical History diabetes type 2 Medical History hearing aids Medical History "brain bleed" 07/2016 Medical History Parkinson's Medical History Depression Surgical History both legs surgery, fractured on a fall on stairs 2001 Hospitalization History of child
--- OUTSIDE RECORDS SUMMARY | 2018-07-22 12:48 | XMS REPORT ---
:1945 Author Organization [facility] Address [address] [place] [address] Care Team Providers Name Role Phone Demarco Boyle Unavailable Unavailable PROBLEMS Type Condition ICD9-CM Code MHA66-NS Code Onset Condition SNOMED Code Dates Status Problem Hypothyroidism, E03.9 Active 30461694 unspecified type Problem Depression, F32.9 Active 30572759 unspecified depression type Problem Insomnia, G47.00 Active 178260026 unspecified type Problem Tinea corporis B35.4 Active 30811137 Problem Pancytopenia D61.818 Active 201484729 Problem Uncomplicated J45.909 Active 24089416 asthma, unspecified asthma severity Problem Parkinsons disease G20 Active 75163090 Problem Obesity, morbid, E66.01 Active 010985575 BMI 50 or higher Problem Body mass index Z68.43 Active 710193954 (BMI) of 50-59.9 in adult Problem Essential I10 Active 36384741 hypertension Problem Chronic gout of M1A.0790 Active 13215393 foot, unspecified cause, unspecified laterality Problem Traumatic S06.300S Active 64226107 intracranial hemorrhage without loss of consciousness, sequela Problem Nerve pain M79.2 Active 59112285 Problem Chronic GERD K21.9 Active 118931084 Problem Personal history Z86.69 Active 844319696 of seizure disorder Problem Type 2 diabetes E11.9 Active 936131714 mellitus without complication, without long-term current use of insulin ALLERGIES No Information ENCOUNTERS Encounter Location Date Diagnosis [facility] [address] [facility] Jun, [place] [address] Jun[place] [address] [facility] [address] [facility] [place] [address] [facility] [address] [facility] [place], Jun, Type 2 [place] [address] without complication, without long-term current use of insulin E11.[address] Jun, Type 2 [place] [address] without complication, without long-term current use of insulin E11.9 [facility] [address] [place] [address] [place], [place] [address] [facility] [address] [place] [address] [place], Jun, Type 2 [place] [address] without complication, without long-term current use of insulin E11.9 ; Parkinsons disease G20 ; Essential hypertension I10 ; Obesity, morbid, BMI 50 or higher E66.01 and Body mass index (BMI) of 50-59.9 in adult Z68.43 [facility] [address] [place] [address] [place], [place] [address] [facility] [address] [place], [place] [address] [facility] [address] [place] [address] [place], [place] [address] [place], [place] [address] [facility] [address] [place] [address] [place] [address] [facility] [address] [place] [address] [place], [place] [address] Feb, [place] [address] [facility] [address] [place] [address] [place] [address] Jan, [place] [address] Jan, [place] [address] [facility] [address] [facility] Jan, [place] [address] [facility] [address] [facility] Jan, [place] [address] [place], Jan, Type 2 [place] [address] without complication, without long-term current use of insulin E11.9 ; Parkinsons disease G20 ; Essential hypertension I10 ; Uncomplicated asthma, unspecified asthma severity J45.909 ; Depression, unspecified depression type F32.9 ; Obesity, morbid, BMI 50 or higher E66.01 and Body mass index (BMI) of 50-59.9 in adult Z68.43 [facility] [address] [place] [address] [place], [place] [address] Jan, [place] [address] [facility] [address] [place] [address], [place] [address] December, [place] [address] [facility] [address] [place] [address] [place], [place] [address] December, [place] [address] [place] [address] [place] [address], [place] [address] [place], [place], [place] [address] leg, subsequent encounter S81.812D ; Risk for falls Z91.81 ; Type 2 diabetes mellitus without complication, without long-term current use of insulin E11.9 ; Screening for breast cancer Z12.31 ; Screening for colon cancer Z12.11 and Osteoporosis screening Z13.820 [facility] [address] [place] [address], [place] [address] Nov, [place] [address] Nov, [facility] [address] [place], Nov, [place] [address] extremity, subsequent encounter S81.812D ; Dependent edema R60.9 and At risk for fall due to comorbid condition Z91.[address] Nov, [place] [address] Nov, [place] [address] [facility] [address] [place] [address] [place], [place] [address] Nov, [facility] [address] [facility] [address] [place] [address] [place], [place] [address] [place], Oct, Injury [place] [address] encounter S09.90XA [address] [place], [place] [address] [place], Oct, [place] [address] encounter S09.90XA ; Fall, initial encounter W19.XXXA and Pitting edema R60.9 [facility] [address] [place] [address] Sep, [place] [address] [facility] [address] [place] [address] Sep, [place] [address] Aug, Dependent edema R60.9 [facility] [place] [address] [place], Aug, Dependent [place] R60.9 [place] [address] [place], Aug, Dependent edema R60.9 [place] [address] Risk for falls Z91.[address] [place], [place] [address] [place], [place] [address] Aug, [place] [address] Jul, [facility] [place] [address] Jul, [facility] [place] [address] [place], [place] [address] [place], Jul, [place], [place] [address] R[address] [place], Jul, Type 2 [place] [address] without complication, without long-term current use of insulin E11.9 ; Hypothyroidism, unspecified type E03.9 ; Pancytopenia D61.818 ; Dependent edema R60.9 ; Screening, lipid Z13.220 and Parkinsons disease G20 [address] Jun, [place] [address] [facility] [address] [place] [address] [address], [address] [place] [address] [place] Jun, [facility] [place] [address] Jun, [facility] [place] [address] [place], [place] [address] [place], Jun, [place]ancy[place] D61.818 [place] [address] [facility] [address] [facility] May, [place] [address] [place], May, [place]35[place] [address] [place], [place], [place] [address] complication B02.9 ; Pancytopenia D61.818 ; Tinea corporis B35.4 and Elevated BUN R79.[address] [place], Apr, [place] [address] complication B02.9 [facility] [address] [place] [address] [address], [address] [place] [address] [place], [place] [address] [place], Apr, Parkinsons disease G20 ; [place] [address] Left upper quadrant pain R10.12 ; Essential hypertension I10 ; Type 2 diabetes mellitus without complication, without long-term current use of insulin E11.9 ; Hypothyroidism, unspecified type E03.9 ; Morbid (severe) obesity due to excess calories E66.01 and Body mass index (BMI) of 50-59.9 in adult Z68.[address] Apr, [place] [address] Danny Orlando [address] Mar, [facility] [place] [address] [place], [place] [address] [place], [place] [address] Mar, Insomnia, unspecified type [facility] [place] [address] G47.00 ; Essential hypertension I10 ; Depression, [...] seizure disorder Z86.69 and Nerve pain M79.[address], Mar, [address], Mar, Encounter to establish [place] [address] care Z76.89 ; Type 2 diabetes mellitus [...] procedures RESULTS No Results REASON FOR VISIT [facility] Insurance Providers [facility] Member Patient Patient Patient Patient Patient Subscriber Subscriber Subscriber Group Insurance Plan Plan Plan Plan ID Relationship Address Phone Name Date of ID Name Date of No Type Insurance Insurance Insurance Coverage to Subscriber Address Phone Name Dates Case Man [phone] Case Man self Mandy [id number] [facility] [place] [address] [place] [address] [employer] Voucher Voucher [facility] [phone] [facility] self Mandy [id number] Medicare [id number] Medicare [place] [employer] [place] [employer] RPPO [id number] RPPO Case [phone] Case self Mandy [id number] Management [place] 02 [facility] [address] [facility] Case [phone] Case self Mandy [id number] Management [place] [address] MEDICAL (GENERAL) HISTORY Type Description Date Medical History diabetes type 2 Medical History hearing aids Medical History "brain bleed" 07/2016 Medical History Parkinson's Medical History Depression Surgical History both legs surgery, fractured on a fall on stairs 2001 Hospitalization History of child
[2018-07-22] MEDS ORDERED: Acetaminophen TAB* 325 MG PO ONE (13:48)
[2018-07-22] MEDS ORDERED: Tranexamic Acid 1,000 MG/10 ML SDV IV ONE (13:49)
[2018-07-22] MEDS ORDERED: Cephalexin CAP* 500 MG PO ONE (14:25)
[2018-07-22 14:34] VITALS: BP 123/66
--- NOTE | 2018-07-22 17:03 | ED ---
Skin Complaint - HPI Summary HPI Summary: The patient is a 73-year-old female with a history of chronic wounds and is being followed by the wound clinic. She presents today after accidentally running her wheelchair into the And breaking open the skin of her right lower leg. There is a laceration approximately 7 cm in length and 3 cm in width which is superficial. Patient has chronic venous ulcers throughout and healing ulcer to the left lower extremity as well. She endorses an 8/10 pain, constant and throbbing. Bleeding is not controlled on arrival and continues to seep through abdominal pads. Denies any blood thinner usage. - History of Current Complaint Chief Complaint: EDExtremityLower Time Seen by Provider: 07/22/18 12:37 Stated Complaint: RIGHT LEG INJURY Hx Obtained From: Patient Onset/Duration: Started Hours Ago Skin Exposure Onset/Duration: Hours Ago Timing: Constant Onset Severity: Moderate Current Severity: Moderate Pain Intensity: 0 Pain Scale Used: 0-10 Numeric Skin Location: Discrete - left anterior lower extremity - 7cm in length - irregular, superficial Aggravating Symptom(s): Nothing Alleviating Symptom(s): Nothing Related History: Trauma - Allergy/Home Medications Allergies/Adverse Reactions: Allergies Allergy/AdvReac Type Severity Reaction Status Date / Time No Known Allergies Allergy Verified 07/22/18 12:32 PMH/Surg Hx/FS Hx/Imm Hx Previously Healthy: Yes Endocrine/Hematology History: Reports: Hx Diabetes - ON ORAL MEDS, Hx Thyroid Disease - ON SYNTHROID Cardiovascular History: Reports: Hx Angina Denies: Hx Hypertension, Hx Pacemaker/ICD Respiratory History: Reports: Hx Asthma - COPD GI History: Reports: Hx Hiatal Hernia - ON DAILY MEDS Musculoskeletal History: Reports: Hx Arthritis - GENERALIZED, Hx Bursitis - BACK Sensory History: Reports: Hx Cataracts - BILATERAL Denies: Hx Hearing Aid Opthamlomology History: Reports: Hx Cataracts - BILATERAL Neurological History: Denies: Other Neuro Impairments/Disorders Psychiatric History: Reports: Hx Anxiety - ON DAILY MEDS, Hx Panic Disorder - Surgical History Surgery Procedure, Year, and Place: 2004 LIVER BIOPSY BOULDER JUNCTION. 1994 DEVIATED SEPTUM [id number]. BILATERAL ORIF ANKLES 2005 Hx Anesthesia Reactions: No - Immunization History Date of Tetanus Vaccine: 2015 Hx Pertussis Vaccination: No Immunizations Up to Date: Yes Infectious Disease History: No Infectious Disease History: Denies: Traveled Outside the [place] in Last 30 Days - Family History Known Family History: Positive: Diabetes, Other - Glaucoma - Social History Occupation: Unemployed Lives: With Family Alcohol Use: None Hx Substance Use: No Substance Use Type: Reports: None Hx Tobacco Use: No Smoking Status (MU): Never Smoked Tobacco Type: Cigarettes Amount Used/How Often: 1/2PPWEEK 30 YRS Have You Smoked in the Last Year: No Review of Systems Negative: Fever, Chills, Fatigue, Skin Diaphoresis Negative: Palpitations, Chest Pain Negative: Shortness Of Breath, Cough Genitourinary: Negative Positive: no symptoms reported, see HPI Negative: Arthralgia Positive: Other - left anterior lower extremity - 7cm in length - irregular, superficial Neurological: Negative All Other Systems Reviewed And Are Negative: Yes Physical Exam Triage Information Reviewed: Yes Vital Signs On Initial Exam: Initial Vitals Temp Pulse Resp BP Pulse Ox 97.1 F 70 16 136/72 98 07/22/18 12:32 07/22/18 12:32 07/22/18 12:32 07/22/18 12:32 07/22/18 12:32 Vital Signs Reviewed: Yes Appearance: Positive: Well-Appearing, Well-Nourished Skin: Positive: Other - left anterior lower extremity - 7cm in length - irregular, superficial Eyes: Positive: EOMI, FACUNDO, Conjunctiva Clear Neck: Positive: Supple, No Lymphadenopathy Respiratory/Lung Sounds: Positive: Clear to Auscultation, Breath Sounds Present Cardiovascular: Positive: RRR, Pulses are Symmetrical in both Upper and Lower Extremities. Negative: Leg Edema Left, Leg Edema Right Musculoskeletal: Positive: Other - weak at baseline d/t parkinsons Neurological: Positive: Speech Normal Psychiatric: Positive: Affect/Mood Appropriate AVPU Assessment: Alert Diagnostics - Vital Signs Vital Signs Temp Pulse Resp BP Pulse Ox 07/22/18 14:33 98.7 F 67 20 123/66 97 07/22/18 12:32 97.1 F 70 16 136/72 98 - Laboratory Lab Statement: Any lab studies that have been ordered have been reviewed, and results considered in the medical decision making process. Course/Dx - Course Course Of Treatment: Patient is evaluated for right lower extremity laceration. Laceration is approximate 7 cm in length, 3 cm in length and superficial. Skin is thin and is unable to be sutured. TXA soaked Surgicel applied with bleeding well controlled. Occlusive dressing and 4 x 4 gauze with Devin wrap applied. Then also applied and patient's son will take off in approximately 2 hours after arrival to home. She will follow-up with wound care in 1-2 days. If this is not possible, she will return to the urgent care or ED for a wound check as well as dressing change. She is a high risk for infection due to her diabetes and Keflex 3 times a day 500 mg 10 days is prescribed. - Diagnoses Provider Diagnoses: Skin avulsion During the Visit The Following Alert/Code Occurred: Trauma Discharge - Sign-Out/Discharge Documenting (check all that apply): Patient Departure - Discharge Plan Condition: Stable Disposition: HOME Prescriptions: Cephalexin CAP* [Keflex CAP*] 500 mg PO TID #30 cap MDD 3 Referrals: Charlie Jeter MD [Primary Care Provider] - Additional Instructions: Follow up with wound care in 1- 2days If you are unable to do this - return to the ED or UC Keep bandages applied Reapply any bandages at home Surgicel or occlusive gauze FIRST, followed by abdominal pad, followed by devin wrap or coban (dark stretchy brown dressing) for compression if area continues to bleed - go to the UC or the ED - Billing Disposition and Condition Condition: STABLE Disposition: Home
== END 2018-07-22 14:33 | disposition home or self-care (01) ==
LOC: ED 12:31
DX: S81.801A Unspecified open wound, right lower leg, initial encounter (principal); X58.XXXA Exposure to other specified factors, initial encounter; Y92.9 Unspecified place or not applicable; E11.9 Type 2 diabetes mellitus without complications; Z79.84 Long term (current) use of oral hypoglycemic drugs
CPT/HCPCS: 96374; 99282; A9270-GY

== ENCOUNTER 2018-11-14 11:35 | Inpatient (IN) | payer MEDICARE ==
--- NOTE | 2018-11-14 11:52 | ED ---
Adult Trauma - HPI Summary HPI Summary: A 73 y/o female brought in by [place] ambulance presents to [facility] with a chief complaint of rib pain post mechanical fall today. She rated her pain as a 5/10 in severity. The patient reports that she was trying to get onto her bed but fell backwards onto a childrens chair. She has pain on the area to the right back of her back. She denies any abdominal pain or SOB. Vital signs while in room HR: 76 bpm, O2 Sat: 96, BP: 120/65. - History of Current Complaint Chief Complaint: EDFall Stated Complaint: POSS FRACTURED RIBS PER EMS Time Seen by Provider: 11/14/18 11:38 Hx Obtained From: Patient, EMS Mechanism of Injury: Fall Onset/Duration: Started Hours Ago Onset of Pain: Post Accident, Prior to Arrival Onset Severity: Moderate Current Severity: Moderate Pain Intensity: 5 Pain Scale Used: 0-10 Numeric Location: Other - ribs Character: Sharp Aggravating Factor(s): Nothing Alleviating Factor(s): Nothing Associated Signs & Symptoms: Positive: Negative - abdominal pain. Negative: SOB - Allergy/Home Medications Allergies/Adverse Reactions: Allergies Allergy/AdvReac Type Severity Reaction Status Date / Time No Known Allergies Allergy Verified 07/22/18 12:32 Home Medications: Home Medications Atenolol TAB* [Tenormin TAB* 50 MG] 25 mg PO DAILY 11/14/18 [History Confirmed 11/14/18] Gabapentin CAP(*) [Neurontin 300 CAP(*)] 300 mg PO TID 11/14/18 [History Confirmed 11/14/18] Metformin ER (NF) 500 mg PO DAILY 11/14/18 [History Confirmed 11/14/18] Mirtazapine TAB* [Remeron TAB*] 15 mg PO BEDTIME 11/14/18 [History Confirmed ] PMH/Surg Hx/FS Hx/Imm Hx Endocrine/Hematology History: Reports: Hx Diabetes - ON ORAL MEDS, Hx Thyroid Disease - ON SYNTHROID Cardiovascular History: Reports: Hx Angina Denies: Hx Hypertension, Hx Pacemaker/ICD Respiratory History: Reports: Hx Asthma - COPD GI History: Reports: Hx Hiatal Hernia - ON DAILY MEDS Musculoskeletal History: Reports: Hx Arthritis - GENERALIZED, Hx Bursitis - BACK Sensory History: Reports: Hx Cataracts - BILATERAL Denies: Hx Hearing Aid Opthamlomology History: Reports: Hx Cataracts - BILATERAL Neurological History: Denies: Other Neuro Impairments/Disorders Psychiatric History: Reports: Hx Anxiety - ON DAILY MEDS, Hx Panic Disorder - Surgical History Surgery Procedure, Year, and Place: 2004 LIVER BIOPSY [place]. 1994 DEVIATED SEPTUM [id number]. BILATERAL ORIF ANKLES 2005 Hx Anesthesia Reactions: No - Immunization History Date of Tetanus Vaccine: 2016 Infectious Disease History: No Infectious Disease History: Denies: Traveled Outside the [place] in Last 30 Days - Family History Known Family History: Positive: Diabetes, Other - Glaucoma - Social History Alcohol Use: None Hx Substance Use: No Substance Use Type: Reports: None Hx Tobacco Use: No Smoking Status (MU): Never Smoked Tobacco Type: Cigarettes Amount Used/How Often: 1/2PPWEEK 30 YRS Have You Smoked in the Last Year: No Review of Systems Negative: Shortness Of Breath Negative: Abdominal Pain Positive: Myalgia - rib pain All Other Systems Reviewed And Are Negative: Yes Physical Exam - Summary Physical Exam Summary: Appearance: The patient is well-nourished in no acute distress and in no acute pain. Skin: The skin is warm and dry and skin color reflects adequate perfusion. HEENT: The head is normocephalic and atraumatic. The pupils are equal and reactive. The conjunctivae are clear and without drainage. Nares are patent and without drainage. Mouth reveals moist mucous membranes and the throat is without erythema and exudate. The external ears are intact. The ear canals are patent and without drainage. The tympanic membranes are intact. Neck: The neck is supple with full range of motion and non-tender. There are no carotid bruits. There is no neck vein distension. Respiratory: Tender in right flank. Lungs are clear to auscultation and breath sounds are symmetrical and equal. Cardiovascular: Heart is regular rate and rhythm. There is no murmur or rub auscultated. There is no peripheral edema and pulses are symmetrical and equal. Abdomen: The abdomen is soft and non-tender. There are normal bowel sounds heard in all four quadrants and there is no organomegaly palpated. Musculoskeletal: There is no back tenderness noted. Extremities are non-tender with full range of motion. There is good capillary refill. There is no peripheral edema or calf tenderness elicited. Neurological: Patient is alert and oriented to person, place and time. The patient has symmetrical motor strength in all four extremities. Cranial nerves are grossly intact. Deep tendon reflexes are symmetrical and equal in all four extremities. Psychiatric: The patient has an appropriate affect and does not exhibit any anxiety or depression. Triage Information Reviewed: Yes Vital Signs On Initial Exam: Initial Vitals Temp Pulse Resp BP Pulse Ox 98.3 F 75 16 120/65 95 11/14/18 11:43 11/14/18 11:43 11/14/18 11:43 11/14/18 11:43 11/14/18 11:43 Vital Signs Reviewed: Yes Diagnostics - Vital Signs Vital Signs Temp Pulse Resp BP Pulse Ox 11/14/18 11:43 98.3 F 75 16 120/65 95 - Laboratory Result Diagrams: 11/15/18 07:03 11/15/18 07:03 Lab Statement: Any lab studies that have been ordered have been reviewed, and results considered in the medical decision making process. - Radiology CXR Radiology Interpretation Completed By: Radiologist Summary of Radiographic Findings: No active disease. Likely rib fractures in the right posterior fifth and. possibly fourth ribs. No pneumothorax is noted. ED physician has reviewed this imaging report. - EKG 13:38 Cardiac Rate: NL - 69 bpm EKG Rhythm: Sinus Rhythm Summary of EKG Findings: Normal sinus rhythm at 69 bpm with diffuse nonspecific T-wave flattening. Adult Trauma Course/Dx - Course Course Of Treatment: Ms. Bellamy presented to the emergency department complaining that she had fallen yesterday and had pain in the right side of her chest in the back. She denied any shortness of breath or paresthesias or weakness. She was tender in the right posterior lateral chest. Lungs were clear and she was nontoxic in appearance with stable vital signs. Chest x-ray revealed a list fractures but no pneumothorax or hemothorax. An attempt was made to discharge her at that point but her son came in stating that she has been getting weaker and weaker with her Parkinson's and falling more frequently. With the combination of Parkinson's and the rib fractures she is unable to take care of herself. hvac services professional was consult but refused to come see her today. The hospitalist service was contacted for evaluation. - Diagnoses Provider Diagnoses: Rib fractures - Physician Notifications Discussed Care Of Patient With: Danika Shoemaker Time Discussed With Above Provider: 17:00 Instructed by Provider To: Admit As Inpatient Discharge - Sign-Out/Discharge Documenting (check all that apply): Patient Departure - admit Patient Received Moderate/Deep Sedation with Procedure: No - Discharge Plan Condition: Improved Disposition: ADMITTED TO [facility] - Billing Disposition and Condition Condition: IMPROVED Disposition: Admitted to [facility] - Attestation Statements Document Initiated by Kimibe: Yes Documenting Scribe: Otis Nix Provider For Whom Scribe is Documenting (Include Credential): Marcos Huff MD Scribe Attestation: I, Otis Nix, scribed for Marcos Huff MD on 11/15/18 at 1657. Scribe Documentation Reviewed: Yes Provider Attestation: The documentation as recorded by the Otis villanueva accurately reflects the service I personally performed and the decisions made by me, Marcos Huff MD Status of Scribe Document: Viewed
--- OUTSIDE RECORDS SUMMARY | 2018-11-14 12:32 | XMS REPORT ---
:1945 Author Organization [facility] Address [address] [place] [address] Care Team Providers Name Role Phone Demarco Boyle Unavailable Unavailable PROBLEMS Type Condition ICD9-CM SJM79-CY Onset Condition SNOMED Code Code Code Dates Status Problem Personal history Z86.69 Active 988431717 of seizure disorder Problem Traumatic S06.300S Active 30004306 intracranial hemorrhage without loss of consciousness, sequela Problem Chronic gout of M1A.0790 Active 53878094 foot, unspecified cause, unspecified laterality Problem Type 2 diabetes E11.9 Active 331667422 mellitus without complication, without long-term current use of insulin Problem Chronic GERD K21.9 Active 962491180 Problem Insomnia, G47.00 Active 033737991 unspecified type Problem Hypothyroidism, E03.9 Active 99147135 unspecified type Problem Nerve pain M79.2 Active 16433518 Problem Parkinsons G20 Active 87809658 disease Problem Uncomplicated J45.909 Active 66006969 asthma, unspecified asthma severity Problem Morbid (severe) E66.01 Active 05891720272192 obesity due to excess calories Problem Essential I10 Active 71564891 hypertension Problem Obesity, morbid, E66.01 Active 840745957 BMI 40.0-49.9 Problem Depression, F32.9 Active 96425157 unspecified depression type Problem Body mass index Z68.43 Active 228654560 (BMI) of 50-59.9 in adult Problem Pancytopenia D61.818 Active 850174574 Problem Tinea corporis B35.4 Active 19626003 Problem Pins and needles R20.2 Active 28288414 sensation ALLERGIES No Information ENCOUNTERS Encounter Location Date Diagnosis [address] [place], [place] [address], [place] [address] [place], Aug, Chronic GERD K21.9 ; [place] [address] Depression, unspecified depression type F32.9 ; Screening for colon cancer Z12.11 and Screening for osteoporosis Z13.[address] Aug, Pins and needles sensation [place], [place] R20.2 [address] Aug, [place] [address] [place] [address] [place], Aug, Nausea R11.0 [place] [address] needles sensation R20.[address] [place], [place] [address], [place] [address] [place], Jul, [place] [address] Pins and needles sensation R20.[address] [place], Jul, [place] [address] unspecified type E03.9 and Type 2 diabetes mellitus without complication, without long-term current use of insulin E11.[address] [place], [place] [address] Jul, [place] [address] Jul, [place] [address] [place], [place], [place] [address] Jul, [place] [address], [place] [address] [place], Jun, [place] [address] extremity, subsequent encounter S81.811D [place] [address] Jun, [place] [address] Jun, [place] [address] [place] Jun, [place] [address] [place] [address] [facility] Jun, [place] [address] [facility] [address] [facility] Jun, [place] [address] [facility] [address] [place], [place] [address] [facility] [address] [place], Jun, Type 2 [place] [address] without complication, without long-term current use of insulin E11.[address] Jun, Type 2 [place] [address] without complication, without long-term current use of insulin E11.9 [facility] [address] [place], [place] [address] [facility] [address] [place], Jun, [place] 2 [place] [address] without complication, without long-term current use of insulin E11.9 ; Parkinsons disease G20 ; Essential hypertension I10 ; Obesity, morbid, BMI 50 or higher E66.01 and Body mass index (BMI) of 50-59.9 in adult Z68.43 [facility] [address] [place], [place] [address] [facility] [address] [place], [place] [address] [facility] [address] [place], [place] [address] [facility] [address] [place], [place] [address] [facility] [address] [place], [place] [address] [facility] [address] [place], [place] [address] [place] [address] [facility] Feb, [place] [address] [facility] [address] [place], [place] [address] [place] [address] [facility] Jan, [place] [address] [place] [address] [facility] Jan, [place] [address] [facility] [address] [facility] Jan, [place] [address] Jan, [place] [address] [facility] [address] [facility] [place], Jan, [place] 2 [place] [address] without complication, without long-term current use of insulin E11.9 ; Parkinsons disease G20 ; Essential hypertension I10 ; Uncomplicated asthma, unspecified asthma severity J45.909 ; Depression, unspecified depression type F32.9 ; Obesity, morbid, BMI 50 or higher E66.01 and Body mass index (BMI) of 50-59.9 in adult Z68.43 [facility] [address] [facility] [place], [place] [address] Jan, [place] [address] [facility] [address] [place] [address] [place] [address] December, [place] [address] [facility] [address] [place] [address] [address] December, [place] [address] [facility] [address] [place] [address], [place] [address] [place], [place], [place] [address] leg, subsequent encounter S81.812D ; Risk for falls Z91.81 ; Type 2 diabetes mellitus without complication, without long-term current use of insulin E11.9 ; Screening for breast cancer Z12.31 ; Screening for colon cancer Z12.11 and Osteoporosis screening Z13.820 [facility] [address] [facility] [place], [place] [address] Nov, [place] [address] Nov, [place] [address] [place] [address] [facility] [place], Nov, [place] [address] extremity, subsequent encounter S81.812D ; Dependent edema R60.9 and At risk for fall due to comorbid condition Z91.[address] Nov, [place] [address] Nov, [place] [address] [place] [address] [address] [facility] [place], [place] [address] [place], [place] [address] [facility] [address] [facility] [place], [place] [address] [place], Oct, [place] [address] encounter S09.90XA [place] [address] [place], [place] [address] [place], Oct, [place] [address] encounter S09.90XA ; Fall, initial encounter W19.XXXA and Pitting edema R60.9 [facility] [address] [place] [address] Sep, [place] [address] [place] [address] Sep, [place] [address] Aug, Dependent edema R60.9 [facility] [place] [address] [place], Aug, Dependent [place] R60.9 [place] [address] [place], Aug, Dependent edema R60.9 [place] [address] Risk for falls Z91.[address] [place], [place] [address] [place], [place] [address] Aug, [place] [address] Jul, [place] [address] Jul, [facility] [place] [address] [facility] [address] [place] [address] [place], [place] [address] [place], Jul, [place], [place] [address] [place], Jul, [place] 2 [place] [address] without complication, without long-term current use of insulin E11.9 ; Hypothyroidism, unspecified type E03.9 ; Pancytopenia D61.818 ; Dependent edema R60.9 ; Screening, lipid Z13.220 and Parkinsons disease G20 [facility] [address] [facility] Jun, [place] [address] [facility] [address] [facility] [address] [place] [address] [place], [place] [address] Jun, [place] [address] [facility] [address] [facility] [place], [place] [address] [facility] [address] [place] [address] [place], Jun, Pancytopenia D61.818 [place] [address] [facility] [address] [place] [address] May, [place] [address] [facility] [address] [facility] [place], May, T[place] B35[place]4 [place] [address] [facility] [address] [place] [address] [place], May, [place] [address] complication B02.9 ; Pancytopenia D61.818 ; Tinea corporis B35.4 and Elevated BUN R79.9 [facility] [address] [place] [address] [place], Apr, [place] [address] complication B02.9 [facility] [address] [facility] [address] [place] [address] [facility] [address] [facility] [place], [place] [address] [facility] [address] [place] [address] [place], Apr, Parkinsons disease G20 ; [place] [address] Left upper quadrant pain R10.12 ; Essential hypertension I10 ; Type 2 diabetes mellitus without complication, without long-term current use of insulin E11.9 ; Hypothyroidism, unspecified type E03.9 ; Morbid (severe) obesity due to excess calories E66.01 and Body mass index (BMI) of 50-59.9 in adult Z68.[address] [place], [place] [address] [place], [place] [address] [place], [place] [address] [place], [place] [address] [place] [address] Mar, Insomnia, unspecified type [place] [address] G47.00 ; Essential hypertension I10 ; Depression, [...] seizure disorder Z86.69 and Nerve pain M79.[address] [place], [place] [address], [place], Encounter to establish [address] Z76.89 ; Type 2 diabetes mellitus without [...] procedures RESULTS No Results REASON FOR VISIT No show 1 Insurance Providers [facility] Member Patient Patient Patient Patient Patient Subscriber Subscriber Subscriber Group Insurance Plan Plan Plan Plan ID Relationship Address Phone Name Date of ID Name Date of No Type Insurance Insurance Insurance Coverage to Subscriber Address Phone Name Dates Case [phone] Case self Mandy [id number] [address] Case [phone] Case self Mandy [id number] [address] Case Man [phone] Case Man self Mandy [id number] [employer] [place] [facility] [address] [employer] Voucher Voucher [facility] [phone] [facility] self Mandy [id number] Medicare [id number] Medicare [facility] Adv Solutions [facility] Solutions RPPO [id number] RPPO MEDICAL (GENERAL) HISTORY Type Description Date Medical History diabetes type 2 Medical History hearing aids Medical History "brain bleed" 07/2016 Medical History Parkinson's Medical History Depression Surgical History both legs surgery, fractured on a fall on stairs 2001 Hospitalization History of child
--- OUTSIDE RECORDS SUMMARY | 2018-11-14 12:32 | XMS REPORT ---
:1945 Author Organization [facility] Address [address] [place] [address] Care Team Providers Name Role Phone Demarco Boyle Unavailable Unavailable PROBLEMS Type Condition ICD9-CM DTA34-MD Onset Condition SNOMED Code Code Code Dates Status Problem Personal history Z86.69 Active 265809606 of seizure disorder Problem Traumatic S06.300S Active 56673759 intracranial hemorrhage without loss of consciousness, sequela Problem Chronic gout of M1A.0790 Active 09384665 foot, unspecified cause, unspecified laterality Problem Type 2 diabetes E11.9 Active 126544050 mellitus without complication, without long-term current use of insulin Problem Chronic GERD K21.9 Active 547938967 Problem Insomnia, G47.00 Active 024303691 unspecified type Problem Hypothyroidism, E03.9 Active 91948776 unspecified type Problem Nerve pain M79.2 Active 70821626 Problem Parkinsons G20 Active 17595589 disease Problem Uncomplicated J45.909 Active 66090255 asthma, unspecified asthma severity Problem Morbid (severe) E66.01 Active 59658952437532 obesity due to excess calories Problem Essential I10 Active 95106429 hypertension Problem Obesity, morbid, E66.01 Active 509217881 BMI 40.0-49.9 Problem Depression, F32.9 Active 38580883 unspecified depression type Problem Body mass index Z68.43 Active 377590241 (BMI) of 50-59.9 in adult Problem Pancytopenia D61.818 Active 979523616 Problem Tinea corporis B35.4 Active 77828544 Problem Pins and needles R20.2 Active 84399735 sensation ALLERGIES No Information ENCOUNTERS Encounter Location Date Diagnosis [address] [place], [place] [address], [place] [address] [place], Aug, Chronic GERD K21.9 ; [place] [address] Depression, unspecified depression type F32.9 ; Screening for colon cancer Z12.11 and Screening for osteoporosis Z13.[address] Aug, Pins and needles sensation [place], [place] R20.2 [address] Aug, [place] [address] [place] [address] [place], Aug, Nausea R11.0 [place] [address] needles sensation R20.[address] [place], [place] [address], [place] [address] [place], Jul, [place] [address] Pins and needles sensation R20.[address] [place], Jul, [place] [address] unspecified type E03.9 and Type 2 diabetes mellitus without complication, without long-term current use of insulin E11.[address] [place], [place] [address] Jul, [place] [address] Jul, [place] [address] [place], [place], [place] [address] Jul, [place] [address], [place] [address] [place], Jun, [place] [address] extremity, subsequent encounter S81.811D [place] [address] Jun, [place] [address] Jun, [place] [address] [place] Jun, [place] [address] [place] [address] [facility] Jun, [place] [address] [facility] [address] [facility] [place], [place] [address] [facility] [address] [place], [place] [address] [facility] [address] [place], Jun, Type 2 [place] [address] without complication, without long-term current use of insulin E11.[address] Jun, Type 2 [place] [address] without complication, without long-term current use of insulin E11.9 [facility] [address] [place], [place] [address] [facility] [address] [place], Jun, [place] 2 [place] [address] without complication, without long-term current use of insulin E11.9 ; Parkinsons disease G20 ; Essential hypertension I10 ; Obesity, morbid, BMI 50 or higher E66.01 and Body mass index (BMI) of 50-59.9 in adult Z68.43 [facility] [address] [place], [place] [address] [facility] [address] [place], [place] [address] [facility] [address] [place], [place] [address] [facility] [address] [place], [place] [address] [facility] [address] [place], [place] [address] [facility] [address] [place], [place] [address] [place] [address] [facility] Feb, [place] [address] [facility] [address] [place], [place] [address] [place] [address] [facility] Jan, [place] [address] [place] [address] [facility] Jan, [place] [address] [facility] [address] [facility] Jan, [place] [address] Jan, [place] [address] [facility] [address] [facility] [place], Jan, Type 2 [place] [address] without complication, without long-term current use of insulin E11.9 ; Parkinsons disease G20 ; Essential hypertension I10 ; Uncomplicated asthma, unspecified asthma severity J45.909 ; Depression, unspecified depression type F32.9 ; Obesity, morbid, BMI 50 or higher E66.01 and Body mass index (BMI) of 50-59.9 in adult Z68.43 [facility] [address] [facility] [place], [place] [address] Jan, [place] [address] [facility] [address] [place] [address] [place], [place] [address] December, [place] [address] [facility] [address] [place] [address], [place] [address] December, [place] [address] [facility] [address] [place] [address], [place] [address] [place], December, [place] [address] leg, subsequent encounter S81.812D ; Risk for falls Z91.81 ; Type 2 diabetes mellitus without complication, without long-term current use of insulin E11.9 ; Screening for breast cancer Z12.31 ; Screening for colon cancer Z12.11 and Osteoporosis screening Z13.820 [facility] [address] [facility] [place], [place] [address] [place], [place] [address] Nov, [place] [address] [place] [address] [facility] [place], Nov, [place] [address] extremity, subsequent encounter S81.812D ; Dependent edema R60.9 and At risk for fall due to comorbid condition Z91.[address] Nov, [place] [address] Nov, [place] [address] [place] [address] [address] [facility] [place], [place] [address] [place], [place] [place] [address] [facility] [address] [facility] [place], [place] [address] [place], Oct, Injury [place] [address] encounter S09.90XA [place] [address] [place], [place] [address] [place], Oct, [place] [address] encounter S09.90XA ; Fall, initial encounter W19.XXXA and Pitting edema R60.9 [facility] [address] [place] [address] Sep, [place] [address] [place] [address] Sep, [place] [address] Aug, Dependent edema R60.9 [facility] [place] [address] [place], Aug, Dependent [place] R60.9 [place] [address] [place], Aug, Dependent edema R60.9 [place] [address] Risk for falls Z91.[address] [place], [place] [address] [place], [place] [address] Aug, [place] [address] Jul, [place] [address] Jul, [place] [address] [facility] [address] [place] [address] [place], [place] [address] [place], Jul, [place], [place] [address] [place], Jul, Type 2 [place] [address] without complication, without long-term current use of insulin E11.9 ; Hypothyroidism, unspecified type E03.9 ; Pancytopenia D61.818 ; Dependent edema R60.9 ; Screening, lipid Z13.220 and Parkinsons disease G20 [facility] [address] [facility] Jun, [place] [address] [facility] [address] [place] [address] [place], [place] [address] [place], [place] [address] [facility] [address] [facility] [place], [place] [address] [facility] [address] [place] [address] [place], Jun, Pancytopenia D61.818 [place] [address] [facility] [address] [place] [address] May, [place] [address] [facility] [address] [facility] [place], May, T[place] B35.4 [place] [address] [facility] [address] [place] [address] [place], May, [place] [address] complication B02.9 ; Pancytopenia D61.818 ; Tinea corporis B35.4 and Elevated BUN R79.9 [facility] [address] [place] [address] [place], Apr, [place] [address] complication B02.9 [facility] [address] [place] [address] [facility] [address] [facility] [place], [place] [address] [facility] [address] [place] [address] [place], Apr, Parkinsons disease G20 ; [place] [address] Left upper quadrant pain R10.12 ; Essential hypertension I10 ; Type 2 diabetes mellitus without complication, without long-term current use of insulin E11.9 ; Hypothyroidism, unspecified type E03.9 ; Morbid (severe) obesity due to excess calories E66.01 and Body mass index (BMI) of 50-59.9 in adult Z68.[address] [place] Apr, [place] [address] [place], [place] [address] [place], [place] [address] [place], [place] [address] [place] [place], Insomnia, unspecified type [place] [address] G47.00 ; Essential hypertension I10 ; Depression, [...] disorder Z86.69 and Nerve pain M79.[address] [place], [place] [address], [place], Encounter to establish [facility] care Z76.89 ; Type 2 diabetes mellitus [...] STATUS PLAN OF CARE VITAL SIGNS MEDICATIONS Medication Instructions Dosage Frequency Start End Duration Status Date Date Montelukast Orally HS Once a 1 tablet 24h 90 days Active Sodium 10 mg day Levothyroxine Orally daily TAKE 1 24h 90 days Active Sodium 75 MCG TABLET BY MOUTH ONCE A DAY IN THE MORNING Allopurinol 100 Orally Once a TAKE 1 24h 14 Apr, 90 days Active mg day TABLET BY 2019 MOUTH ONCE A DAY PROCEDURES No Known procedures RESULTS No Results REASON FOR VISIT Rx refill Insurance Providers [facility] Health Member Patient Patient Patient Patient Patient Subscriber Subscriber Subscriber Group Insurance Plan Plan Plan Plan ID Relationship Address Phone Name Date of ID Name Date of No Type Insurance Insurance Insurance Coverage to Subscriber Address Phone Name Dates Case [phone] Case self Mandy [id number] [facility] [place] [address] Case [phone] Case self Mandy [id number] Management [place] [address] Case Man [phone] Case Man self Mandy [id number] [facility] [place] [address] [employer] Vou[employer] [facility] [phone] [facility] self Mandy [id number] Medicare [id number] Medicare [place] [employer] [place] [employer] [facility] [employer] RPPO [id number] RPPO MEDICAL (GENERAL) HISTORY Type Description Date Medical History diabetes type 2 Medical History hearing aids Medical History "brain bleed" 07/2016 Medical History Parkinson's Medical History Depression Surgical History both legs surgery, fractured on a fall on stairs 2001 Hospitalization History of child
[2018-11-14 13:46] LABS: ABS Basophils 0 10^3/ul (0-0.2); ABS Eosinophils 0.1 10^3/ul (0-0.6); ABS Lymphocytes 0.8 10^3/ul (1.0-4.8); ABS Monocytes 0.3 10^3/ul (0-0.8); ABS Neutrophils 4.1 10^3/ul (1.5-7.7); ABS Nucleated RBC 0 10^3/ul; Eosinophil % 1.9 %; Hematocrit 35 % (33-41); Mean Corpuscular HGB Conc 31 g/dL (31-36); Mean Corpuscular Hemoglobin 25 pg (27-31); Mean Corpuscular Volume 80 fL (80-97); Mean Platelet Volume 8.6 fL (7.4-10.4); Nucleated Red Blood Cells % 0.1; Platelet Count 144 10^3/uL (150-450); Red Blood Count 4.38 10^6 /uL (3.70-4.87); Red Cell Distribution Width 18 % (10.5-15); White Blood Count 5.3 10^3/uL (3.5-10.8)
[2018-11-14 13:47] LABS: Urine Appearance Clear; Urine Bilirubin Negative (Negative); Urine Blood Negative (Negative); Urine Color Straw; Urine Glucose Negative (Negative); Urine Ketones Negative (Negative); Urine Nitrite Negative (Negative); Urine Protein Negative (Negative); Urine Urobilinogen Negative (Negative)
[2018-11-14 14:04] LABS: Albumin 3.9 g/dL (3.2-5.2); Albumin/Globulin Ratio 1.2 (1-3); BUN/Creatinine Ratio 34.6 (8-20); Calcium 9.6 mg/dL (8.6-10.3); EGFR African American 49.6 (>60); Globulin 3.3 g/dL (2-4); Magnesium 1.9 mg/dL (1.9-2.7); Potassium 4.2 mmol/L (3.5-5.0); Total Bilirubin 0.5 mg/dL (0.2-1.0); Total Protein 7.2 g/dL (6.4-8.9)
[2018-11-14 14:47] LABS: TSH (Thyroid Stimulating Horm) 5.86 mcIU/mL (0.34-5.60)
[2018-11-14] MEDS ORDERED: Ketorolac INJ* 30 MG/ML 1 ML VIAL IV PUSH ONE (17:07)
[2018-11-14] MEDS ORDERED: Ondansetron INJ* 2 MG/ML VIAL IV PRN (18:25)
[2018-11-14 18:58] LABS: Free T3 2.7 pg/mL (2.5-3.9)
[2018-11-14 19:00] LABS: Free T4 0.77 ng/dL (0.61-1.12)
--- NOTE | 2018-11-14 20:23 | HP ---
ADMISSION HISTORY AND PHYSICAL: DATE OF ADMISSION: 11/14/18 PRIMARY CARE PROVIDER: Dr. Demarco Boyle in [place]. HEALTHCARE PROXY: Her son, Arnel. CODE STATUS: Full. SOURCE OF INFORMATION: History obtained from interview with the patient and review of past medical records. RELIABILITY: Fair, but not good. CHIEF COMPLAINT: Fall and pain. HISTORY OF PRESENT ILLNESS: This is a 73-year-old female with past medical history of Parkinson's disease reportedly diagnosed last year, type 2 diabetes, hypothyroidism, asthma, COPD. Reports she had been in her usual state of health , which consists of multiple ailments, generally never feels well. Went to bed last night, woke up overnight to use the bathroom, fell without any loss of consciousness and no head strike falling backwards, hit her back on a chair. She laid on the floor for "quite a while" because of pain in the right flank and back until she was able to call her son this morning, who activated the EMS and brought the patient to the emergency room. The patient describes no chest pain or shortness of breath either preceding or after this fall. No nausea, vomiting, lightheadedness, or loss of consciousness as described above. Recently, she has had no fevers, chills, or cough. She did have a little bit of diarrhea after falling. She denies any other recent dysuria or diarrhea. She denies any recent changes in medication. In the emergency room, she received Toradol with some relief; however, when seen by this author indicates she currently "I hurt." At home, she is partly wheelchair bound; however, intermittently uses a walker. She sees her son daily. She is independent of activities of daily living. She gets food from [employer] and is able to bathe with the assistance of a chair in her bathroom. PAST MEDICAL HISTORY: Includes: 1. CKD. 2. Parkinson's. 3. Type 2 diabetes. 4. Hypothyroidism. 5. Asthma/COPD. 6. Bilateral cataract removal. 7. Bilateral ankle ORIF in 2004. 8. Liver biopsy, unclear reason. 9. Hyperlipidemia. HOME MEDICATIONS: Include: 1. Aspirin 81 mg daily. 2. Remeron 15 mg at bedtime. 3. Gabapentin 300 mg 3 times a day. 4. Bupropion SR 150 mg twice daily. 5. Metformin 500 mg daily. 6. Lasix 40 mg daily. 7. Paroxetine 20 mg daily. 8. Atenolol 25 mg daily. 9. Allopurinol 100 mg at bedtime. 10. Montelukast 10 mg at bedtime. 11. Levothyroxine 75 mg in the morning. 12. Hydrocodone/acetaminophen 5/325 one tab every 6 hours as needed. ALLERGIES: No known drug allergies. FAMILY HISTORY: Significant for glaucoma, type 2 diabetes, hypertension, and CVA. SOCIAL HISTORY: No history of tobacco or alcohol or illicits. Lives alone. Uses a wheelchair as well as occasional walker. REVIEW OF SYSTEMS: As per HPI. Otherwise, all other systems negative. PHYSICAL EXAMINATION GENERAL: Lying, 40 degrees in bed, interactive, no apparent distress. She has masked facies. VITAL SIGNS: Vitals when seen by this author 112/59, heart rate 71, respiratory rate 16, 96% on room air, T-max 98.3. HEENT: Her oropharynx is clear. She has dry mucous membranes. Her sclerae are anicteric. NECK: She has non-elevated JVD. LUNGS: Have rales in bilateral bases. HEART: She has regular rate and rhythm. No murmurs, rubs, or gallops. ABDOMEN: Soft, nontender, nondistended. EXTREMITIES: Warm and well perfused. No clubbing, cyanosis, edema. SKIN: Notable for erythema under abdominal pannus. Her right 5th toe is erythematous down to the MCP. She has a skin tear on her left pretibial region. DIAGNOSTIC STUDIES/LAB DATA: Labs reviewed. Hemoglobin 11, hematocrit 35, platelets 144. BUN 44, creatinine 1.27, glucose 112. Lactic acid 1.0. TSH is 5.8. Urine is negative or benign. Data reviewed. Chest x-ray, impression: No active disease, likely rib fractures in right posterior possibly 4th rib, no pneumothorax. EKG. Low voltage and limb leads left axis, biphasic T waves in V2, V3, inverted T wave in V4 and V5. ASSESSMENT AND PLAN: This is a 73-year-old female with past medical history as indicated above including a diagnosis of Parkinson's, not on Sinemet or other medications, chronic pain, low functioning, but able to continue ADLs and IADLs at home despite chronic medical conditions presented after a fall with multiple rib fractures. 1. Rib fractures. Impeding her ability to care for herself at home. Admission for IV Toradol and continue p.o. narcotics. Increase IV narcotics if needed. 2. Rales may be an indication of some blunting and atelectasis, not seen on chest x-ray. If any fevers, we would increase antibiotics to include community- acquired pneumonia. 3. Right 5th toe erythema - suspect cellulitis. Start with p.o. Keflex. Can broaden spectrum if necessary. 4. Chronic kidney disease. No additional fluids today, repeat tomorrow, monitor BUN, can possibly receive fluids if necessary. 5. Hypothyroidism with elevated TSH. Add on free T3, T4. May need to increase dose of Synthroid. 6. Fungal infection under pannus. Administer nystatin. 7. Abnormal EKG with possible indications of ischemia. Add on troponin. Repeat EKG now. 8. DVT prophylaxis, Lovenox. [id number]/CPS #: [id number] [facility]
[2018-11-14] MEDS: Cephalexin CAP* 500 MG PO SCH (23:53)
[2018-11-14] MEDS: oxyCODONE/Acetamin 5/325 MG* TAB PO PRN (23:53)
[2018-11-14] MEDS: Enoxaparin(*) 40 MG/0.4 ML SYR SUBCUT SCH (23:53)
[2018-11-14] MEDS: Allopurinol TAB* 100 MG PO SCH (23:54)
[2018-11-14] MEDS: Montelukast Sodium TAB* 10 MG PO SCH (23:54)
[2018-11-14] MEDS: Gabapentin CAP(*) 300 MG PO SCH (23:54)
[2018-11-14] MEDS: buPROPion SR TAB.SR* 150 MG PO SCH (23:54)
[2018-11-14] MEDS: Mirtazapine TAB* 15 MG PO SCH (23:54)
[2018-11-14] MEDS: Nystatin OINT* 15 GM TOPICAL SCH (23:55)
[2018-11-15] MEDS: Levothyroxine TAB* 75 MCG TAB PO SCH (06:42)
[2018-11-15 07:49] LABS: ABS Basophils 0 10^3/ul (0-0.2); ABS Eosinophils 0.1 10^3/ul (0-0.6); ABS Monocytes 0.4 10^3/ul (0-0.8); ABS Nucleated RBC 0 10^3/ul; Eosinophil % 3.6 %; Hematocrit 34 % (33-41); Hemoglobin 10.6 g/dL (12.0-16.0); Lymphocyte % 27.9 %; Mean Corpuscular HGB Conc 32 g/dL (31-36); Mean Corpuscular Hemoglobin 25 pg (27-31); Mean Corpuscular Volume 80 fL (80-97); Mean Platelet Volume 8.8 fL (7.4-10.4); Nucleated Red Blood Cells % 0.1; Platelet Count 127 10^3/uL (150-450); Red Cell Distribution Width 18 % (10.5-15); White Blood Count 3.6 10^3/uL (3.5-10.8)
[2018-11-15 08:05] LABS: BUN/Creatinine Ratio 30.4 (8-20); Calcium 9.4 mg/dL (8.6-10.3); EGFR African American 41.6 (>60); EGFR Non-African American 34.4 (>60); Potassium 4.2 mmol/L (3.5-5.0)
[2018-11-15] MEDS: oxyCODONE/Acetamin 5/325 MG* TAB PO PRN (08:22)
[2018-11-15] MEDS: Cephalexin CAP* 500 MG PO SCH ×3 (08:22→21:38)
[2018-11-15] MEDS: Aspirin EC TAB* 81 MG TAB.EC PO SCH (08:23)
[2018-11-15] MEDS: metFORMIN* 500 MG TAB PO SCH ×2 (08:23→21:38)
[2018-11-15] MEDS: PARoxetine HCL TAB* 20 MG PO SCH (08:23)
[2018-11-15] MEDS: Gabapentin CAP(*) 300 MG PO SCH ×3 (08:23→21:38)
[2018-11-15] MEDS: buPROPion SR TAB.SR* 150 MG PO SCH ×2 (08:24→21:37)
[2018-11-15] MEDS ORDERED: Furosemide TAB* 40 MG PO SCH (09:00)
[2018-11-15] MEDS: Nystatin OINT* 15 GM TOPICAL SCH ×3 (09:35→21:57)
[2018-11-15] MEDS: Atenolol TAB* 25 MG PO SCH (09:35)
[2018-11-15] MEDS ORDERED: NS 0.9% 1000 ML** 1,000 ML IV SCH (10:45)
[2018-11-15] MEDS: Ketorolac INJ* 30 MG/ML 1 ML VIAL IV PUSH PRN ×2 (13:57→21:57)
--- NOTE | 2018-11-15 15:25 | PN ---
Subjective Date of Service: 11/15/18 Interval History: Pain persists Trouble with deep inspirations No N/V Discussing MARIEL placement Kidney fxn declining today Objective Active Medications: Allopurinol (Zyloprim Tab*) 100 mg PO BEDTIME [facility] Last Admin: 11/14/18 23:54 Dose: 100 mg Aspirin (Aspirin Ec Tab*) 81 mg PO DAILY [facility] Last Admin: 11/15/18 08:23 Dose: 81 mg Atenolol (Tenormin Tab*) 25 mg PO DAILY [facility] Last Admin: 11/15/18 09:35 Dose: 25 mg Bupropion HCl (Wellbutrin Sr Tab*) 150 mg PO BID [facility] Last Admin: 11/15/18 08:24 Dose: 150 mg Cephalexin HCl (Keflex Cap*) 500 mg PO TID [facility] Last Admin: 11/15/18 13:48 Dose: 500 mg Enoxaparin Sodium (Lovenox(*)) 40 mg SUBCUT Q24H [facility] Last Admin: 11/14/18 23:53 Dose: 40 mg Furosemide (Lasix Tab*) 40 mg PO DAILY [facility] Last Admin: 11/15/18 09:35 Dose: 40 mg Gabapentin (Neurontin Cap(*)) 300 mg PO TID [facility] Last Admin: 11/15/18 13:48 Dose: 300 mg Sodium Chloride (Ns 0.9% 1000 Ml) 1,000 mls @ 200 mls/hr IV PER RATE [facility] Stop: 11/15/18 15:44 Last Admin: 11/15/18 10:59 Dose: 200 mls/hr Ketorolac Tromethamine (Toradol Inj*) 30 mg IV PUSH Q6H PRN PRN Reason: PAIN Last Admin: 11/15/18 13:57 Dose: 30 mg Levothyroxine Sodium (Synthroid Tab*) 75 mcg PO 0630 [facility] Last Admin: 11/15/18 06:42 Dose: 75 mcg Metformin HCl (Glucophage*) 500 mg PO BID [facility] Last Admin: 11/15/18 08:23 Dose: 500 mg Mirtazapine (Remeron Tab*) 15 mg PO BEDTIME [facility] Last Admin: 11/14/18 23:54 Dose: 15 mg Montelukast Sodium (Singulair Tab*) 10 mg PO BEDTIME [facility] Last Admin: 11/14/18 23:54 Dose: 10 mg Nystatin (Nystatin Oint*) 1 applic TOPICAL TID [facility] Last Admin: 11/15/18 13:48 Dose: 1 applic Ondansetron HCl (Zofran Inj*) 4 mg IV Q4H PRN PRN Reason: NAUSEA/VOMITING Oxycodone/Acetaminophen (Percocet 5/325 Tab*) 1 tab PO Q4H PRN PRN Reason: PAIN Last Admin: 11/15/18 08:22 Dose: 1 tab Paroxetine HCl (Paxil Tab*) 20 mg PO QAM [facility] Last Admin: 11/15/18 08:23 Dose: 20 mg Vital Signs - 8 hr 11/15/18 11/15/18 11/15/18 08:22 08:23 08:30 Temperature 97.9 F Pulse Rate 64 62 Respiratory 17 16 17 Rate Blood Pressure 104/47 110/60 (mmHg) O2 Sat by Pulse 95 Oximetry 11/15/18 11/15/18 11/15/18 09:59 10:25 11:15 Temperature 98.1 F Pulse Rate 67 Respiratory 17 17 24 Rate Blood Pressure 87/43 (mmHg) O2 Sat by Pulse 96 Oximetry 11/15/18 13:48 Temperature Pulse Rate Respiratory 16 Rate Blood Pressure (mmHg) O2 Sat by Pulse Oximetry Oxygen Devices in Use Now: None Appearance: masked facies Eyes: No Scleral Icterus Ears/Nose/Mouth/Throat: NL Teeth, Lips, Gums, Clear Oropharnyx Neck: NL Appearance and Movements; NL JVP, Trachea Midline Respiratory: Symmetrical Chest Expansion and Respiratory Effort, Clear to Auscultation, - - pain with movement in bed right flank Cardiovascular: RRR Abdominal: NL Sounds; No Tenderness; No Distention, No Hepatosplenomegaly Lymphatic: No Cervical Adenopathy Skin: - - right 5th toe erythematous but improved Neurological: Alert and Oriented x 3 Result Diagrams: 11/15/18 07:03 11/15/18 07:03 Assess/Plan/Problems-Billing Assessment: 73 yo F h/o parkinsons not on meds, mostly wheelchair bound pw rib fractures and uncontrolled pain s/p fall and rib fxrs with stay notable for worsening kidney fxn - Patient Problems (1) Rib fractures Comment: toradol percocet PT/OT to eval for MARIEL placement (2) Diabetes Comment: metformin (3) Hypothyroid Comment: synthroid (4) JOSE (acute kidney injury) Comment: decrease lasix 40 to 20mg 1 liter NS recheck (5) Cellulitis Comment: left 5th toe PO keflex (6) DVT prophylaxis Comment: lovenox
[2018-11-15] MEDS: Mirtazapine TAB* 15 MG PO SCH (21:37)
[2018-11-15] MEDS: Allopurinol TAB* 100 MG PO SCH (21:38)
[2018-11-15] MEDS: Montelukast Sodium TAB* 10 MG PO SCH (21:38)
[2018-11-15] MEDS: Enoxaparin(*) 40 MG/0.4 ML SYR SUBCUT SCH (21:38)
[2018-11-16] MEDS: Levothyroxine TAB* 75 MCG TAB PO SCH (05:35)
[2018-11-16] MEDS: Ketorolac INJ* 30 MG/ML 1 ML VIAL IV PUSH PRN ×3 (05:41→21:09)
[2018-11-16 06:35] LABS: ABS Basophils 0 10^3/ul (0-0.2); ABS Eosinophils 0.2 10^3/ul (0-0.6); ABS Lymphocytes 0.8 10^3/ul (1.0-4.8); ABS Monocytes 0.3 10^3/ul (0-0.8); ABS Neutrophils 1.8 10^3/ul (1.5-7.7); ABS Nucleated RBC 0 10^3/ul; Eosinophil % 5.1 %; Hematocrit 28 % (33-41); Hemoglobin 9.1 g/dL (12.0-16.0); Lymphocyte % 26.1 %; Mean Corpuscular HGB Conc 32 g/dL (31-36); Mean Corpuscular Hemoglobin 26 pg (27-31); Mean Corpuscular Volume 80 fL (80-97); Mean Platelet Volume 8.2 fL (7.4-10.4); Nucleated Red Blood Cells % 0; Platelet Count 117 10^3/uL (150-450); Red Blood Count 3.55 10^6 /uL (3.70-4.87); Red Cell Distribution Width 18 % (10.5-15); White Blood Count 3.1 10^3/uL (3.5-10.8)
[2018-11-16 06:49] LABS: BUN/Creatinine Ratio 30.8 (8-20); Calcium 8.8 mg/dL (8.6-10.3); EGFR African American 38.3 (>60); EGFR Non-African American 31.7 (>60); Potassium 3.8 mmol/L (3.5-5.0)
[2018-11-16] MEDS: oxyCODONE/Acetamin 5/325 MG* TAB PO PRN (08:24)
[2018-11-16] MEDS: Nystatin OINT* 15 GM TOPICAL SCH ×3 (08:24→20:27)
[2018-11-16] MEDS: Aspirin EC TAB* 81 MG TAB.EC PO SCH (08:25)
[2018-11-16] MEDS: Gabapentin CAP(*) 300 MG PO SCH ×3 (08:25→20:27)
[2018-11-16] MEDS: PARoxetine HCL TAB* 20 MG PO SCH (08:25)
[2018-11-16] MEDS: metFORMIN* 500 MG TAB PO SCH (08:25)
[2018-11-16] MEDS: buPROPion SR TAB.SR* 150 MG PO SCH ×2 (08:25→20:27)
[2018-11-16] MEDS: Cephalexin CAP* 500 MG PO SCH ×3 (08:25→20:27)
[2018-11-16] MEDS: Atenolol TAB* 25 MG PO SCH (08:26)
[2018-11-16] MEDS ORDERED: Furosemide TAB* 20 MG PO SCH (09:00)
[2018-11-16] MEDS: Carbidopa/Levodop 25/100 MG TAB(*) PO SCH ×2 (14:09→20:27)
[2018-11-16] MEDS: NS 0.9% 1000 ML** 1,000 ML IV SCH ×2 (14:37→19:14)
--- NOTE | 2018-11-16 15:09 | PN ---
Subjective Date of Service: 11/16/18 Interval History: Pain in right ribs stable but present denies SIDDIQI, N/V Not OOB, mostly wheelchair bound at home Interested in DC to [facility] [place] Objective Active Medications: Allopurinol (Zyloprim Tab*) 100 mg PO BEDTIME [facility] Last Admin: 11/15/18 21:38 Dose: 100 mg Aspirin (Aspirin Ec Tab*) 81 mg PO DAILY [facility] Last Admin: 11/16/18 08:25 Dose: 81 mg Atenolol (Tenormin Tab*) 25 mg PO DAILY [facility] Last Admin: 11/16/18 08:26 Dose: Not Given Bupropion HCl (Wellbutrin Sr Tab*) 150 mg PO BID [facility] Last Admin: 11/16/18 08:25 Dose: 150 mg Carbidopa/Levodopa (Sinemet 25/100 Tab(*)) 3 tab PO TID [facility] Last Admin: 11/16/18 14:09 Dose: 3 tab Cephalexin HCl (Keflex Cap*) 500 mg PO TID [facility] Last Admin: 11/16/18 14:09 Dose: 500 mg Enoxaparin Sodium (Lovenox(*)) 40 mg SUBCUT Q24H [facility] Last Admin: 11/15/18 21:38 Dose: 40 mg Gabapentin (Neurontin Cap(*)) 300 mg PO TID [facility] Last Admin: 11/16/18 14:09 Dose: 300 mg Sodium Chloride (Ns 0.9% 1000 Ml) 1,000 mls @ 250 mls/hr IV PER RATE [facility] Stop: 11/17/18 17:29 Last Admin: 11/16/18 14:37 Dose: 250 mls/hr Ketorolac Tromethamine (Toradol Inj*) 30 mg IV PUSH Q6H PRN PRN Reason: PAIN Last Admin: 11/16/18 14:43 Dose: 30 mg Levothyroxine Sodium (Synthroid Tab*) 75 mcg PO 0630 [facility] Last Admin: 11/16/18 05:35 Dose: 75 mcg Mirtazapine (Remeron Tab*) 15 mg PO BEDTIME [facility] Last Admin: 11/15/18 21:37 Dose: 15 mg Montelukast Sodium (Singulair Tab*) 10 mg PO BEDTIME [facility] Last Admin: 11/15/18 21:38 Dose: 10 mg Nystatin (Nystatin Oint*) 1 applic TOPICAL TID [facility] Last Admin: 11/16/18 14:10 Dose: 1 applic Ondansetron HCl (Zofran Inj*) 4 mg IV Q4H PRN PRN Reason: NAUSEA/VOMITING Oxycodone/Acetaminophen (Percocet 5/325 Tab*) 1 tab PO Q4H PRN PRN Reason: PAIN Last Admin: 11/16/18 08:24 Dose: 1 tab Paroxetine HCl (Paxil Tab*) 20 mg PO QAM [facility] Last Admin: 11/16/18 08:25 Dose: 20 mg Vital Signs - 8 hr 11/16/18 11/16/18 11/16/18 07:17 08:00 08:10 Temperature 97.6 F Pulse Rate 69 Respiratory 16 17 Rate Blood Pressure 98/42 102/60 (mmHg) O2 Sat by Pulse 95 Oximetry 11/16/18 11/16/18 11/16/18 08:24 08:25 10:20 Temperature Pulse Rate Respiratory 17 17 17 Rate Blood Pressure (mmHg) O2 Sat by Pulse Oximetry 11/16/18 11/16/18 11/16/18 11:01 11:06 11:07 Temperature 98.3 F 98.3 F Pulse Rate 70 70 Respiratory 17 16 16 Rate Blood Pressure 88/40 92/48 (mmHg) O2 Sat by Pulse 96 86 Oximetry 11/16/18 14:09 Temperature Pulse Rate Respiratory 16 Rate Blood Pressure (mmHg) O2 Sat by Pulse Oximetry Oxygen Devices in Use Now: None Appearance: lying flat, NAD Ears/Nose/Mouth/Throat: NL Teeth, Lips, Gums, Clear Oropharnyx Neck: NL Appearance and Movements; NL JVP, Trachea Midline Respiratory: Symmetrical Chest Expansion and Respiratory Effort, Clear to Auscultation Cardiovascular: RRR Abdominal: NL Sounds; No Tenderness; No Distention Skin: - - right 5th toe mildly erythematous Neurological: Alert and Oriented x 3 Result Diagrams: 11/16/18 06:24 11/16/18 06:24 Assess/Plan/Problems-Billing Assessment: 73 yo F h/o parkinsons (on meds after finding home meds from previous neurologist) mostly wheelchair bound pw rib fractures and uncontrolled pain s/p fall with stay notable for worsening kidney fxn - Patient Problems (1) Rib fractures Comment: toradol percocet PT/OT to eval for [facility] placement - would benefit after evaluation unable to care for self at home (2) Anemia Comment: evolving recheck today then trend daily check stool occult blood (3) Diabetes Comment: d/c metformin with worsening JOSE monitor, insulin if needed (4) Hypothyroid Comment: synthroid (5) JOSE (acute kidney injury) Comment: stop lasix c/w addition NS recheck (6) Cellulitis Comment: RIGHT 5th toe PO keflex Much improved since admission (7) DVT prophylaxis Comment: lovenox
[2018-11-16 15:34] LABS: Hematocrit 29 % (33-41); Hemoglobin 9.3 g/dL (12.0-16.0)
[2018-11-16] MEDS: Montelukast Sodium TAB* 10 MG PO SCH (20:27)
[2018-11-16] MEDS: Mirtazapine TAB* 15 MG PO SCH (20:27)
[2018-11-16] MEDS: Allopurinol TAB* 100 MG PO SCH (20:27)
[2018-11-16] MEDS: Enoxaparin(*) 40 MG/0.4 ML SYR SUBCUT SCH (20:30)
[2018-11-17] MEDS: Levothyroxine TAB* 75 MCG TAB PO SCH (05:57)
[2018-11-17 07:01] LABS: ABS Basophils 0 10^3/ul (0-0.2); ABS Eosinophils 0.1 10^3/ul (0-0.6); ABS Lymphocytes 0.5 10^3/ul (1.0-4.8); ABS Monocytes 0.2 10^3/ul (0-0.8); ABS Neutrophils 1.2 10^3/ul (1.5-7.7); ABS Nucleated RBC 0 10^3/ul; Hematocrit 29 % (33-41); Hemoglobin 9.2 g/dL (12.0-16.0); Lymphocyte % 25.2 %; Mean Corpuscular HGB Conc 32 g/dL (31-36); Mean Corpuscular Hemoglobin 25 pg (27-31); Mean Corpuscular Volume 81 fL (80-97); Nucleated Red Blood Cells % 0.3; Platelet Count 109 10^3/uL (150-450); Red Blood Count 3.62 10^6 /uL (3.70-4.87); Red Cell Distribution Width 18 % (10.5-15); White Blood Count 2.1 10^3/uL (3.5-10.8)
[2018-11-17 07:12] LABS: BUN/Creatinine Ratio 30.6 (8-20); Calcium 8.7 mg/dL (8.6-10.3); EGFR African American 59.8 (>60); EGFR Non-African American 49.5 (>60); Potassium 4.1 mmol/L (3.5-5.0)
[2018-11-17] MEDS: Cephalexin CAP* 500 MG PO SCH ×3 (08:08→21:31)
[2018-11-17] MEDS: Carbidopa/Levodop 25/100 MG TAB(*) PO SCH ×3 (08:09→21:34)
[2018-11-17] MEDS: Gabapentin CAP(*) 300 MG PO SCH ×3 (08:09→21:32)
[2018-11-17] MEDS: PARoxetine HCL TAB* 20 MG PO SCH (08:09)
[2018-11-17] MEDS: Aspirin EC TAB* 81 MG TAB.EC PO SCH (08:09)
[2018-11-17] MEDS: buPROPion SR TAB.SR* 150 MG PO SCH ×2 (08:09→21:32)
[2018-11-17] MEDS: Atenolol TAB* 25 MG PO SCH (08:10)
[2018-11-17] MEDS: Ketorolac INJ* 30 MG/ML 1 ML VIAL IV PUSH PRN ×2 (08:10→17:29)
[2018-11-17] MEDS: Nystatin OINT* 15 GM TOPICAL SCH ×3 (08:11→21:45)
--- NOTE | 2018-11-17 17:00 | PN ---
Subjective Date of Service: 11/17/18 Interval History: Feeling better today, more energetic and animated. Today expressing that she wants to return home and not [facility]. She indicates "I just need someone there at every meal" which she concedes is not possible. At this point she can not get back in bed from a sitting position and obviously does not have the strength to manage at home alone. Her son Arnel is in agreement and wants her to go to a [facility] either [facility] or other. I discussed his mother's change in preference and Arnel will come to the hospital tomorrow before 10am to discuss with pt and try and persuade her to go to [facility] Objective Active Medications: Allopurinol (Zyloprim Tab*) 100 mg PO BEDTIME [facility] Last Admin: 11/16/18 20:27 Dose: 100 mg Aspirin (Aspirin Ec Tab*) 81 mg PO DAILY [facility] Last Admin: 11/17/18 08:09 Dose: 81 mg Atenolol (Tenormin Tab*) 25 mg PO DAILY [facility] Last Admin: 11/17/18 08:10 Dose: 25 mg Bupropion HCl (Wellbutrin Sr Tab*) 150 mg PO BID [facility] Last Admin: 11/17/18 08:09 Dose: 150 mg Carbidopa/Levodopa (Sinemet 25/100 Tab(*)) 3 tab PO TID [facility] Last Admin: 11/17/18 14:09 Dose: 3 tab Cephalexin HCl (Keflex Cap*) 500 mg PO TID [facility] Last Admin: 11/17/18 14:09 Dose: 500 mg Enoxaparin Sodium (Lovenox(*)) 40 mg SUBCUT Q24H [facility] Last Admin: 11/16/18 20:30 Dose: 40 mg Gabapentin (Neurontin Cap(*)) 300 mg PO TID [facility] Last Admin: 11/17/18 14:09 Dose: 300 mg Sodium Chloride (Ns 0.9% 1000 Ml) 1,000 mls @ 250 mls/hr IV PER RATE [facility] Stop: 11/17/18 17:29 Last Admin: 11/16/18 19:14 Dose: 250 mls/hr Ketorolac Tromethamine (Toradol Inj*) 30 mg IV PUSH Q6H PRN PRN Reason: PAIN Last Admin: 11/17/18 08:10 Dose: 30 mg Levothyroxine Sodium (Synthroid Tab*) 75 mcg PO 0630 [facility] Last Admin: 11/17/18 05:57 Dose: 75 mcg Mirtazapine (Remeron Tab*) 15 mg PO BEDTIME [facility] Last Admin: 11/16/18 20:27 Dose: 15 mg Montelukast Sodium (Singulair Tab*) 10 mg PO BEDTIME [facility] Last Admin: 11/16/18 20:27 Dose: 10 mg Nystatin (Nystatin Oint*) 1 applic TOPICAL TID [facility] Last Admin: 11/17/18 14:10 Dose: 1 applic Ondansetron HCl (Zofran Inj*) 4 mg IV Q4H PRN PRN Reason: NAUSEA/VOMITING Oxycodone/Acetaminophen (Percocet 5/325 Tab*) 1 tab PO Q4H PRN PRN Reason: PAIN Last Admin: 11/16/18 08:24 Dose: 1 tab Paroxetine HCl (Paxil Tab*) 20 mg PO QAM [facility] Last Admin: 11/17/18 08:09 Dose: 20 mg Vital Signs - 8 hr 11/17/18 11/17/18 11/17/18 10:15 14:09 15:18 Temperature 98.0 F Pulse Rate 80 Respiratory 16 16 20 Rate Blood Pressure 124/60 (mmHg) O2 Sat by Pulse 100 Oximetry Oxygen Devices in Use Now: None Appearance: lying in bed, NAD Eyes: No Scleral Icterus, PERRLA Ears/Nose/Mouth/Throat: NL Teeth, Lips, Gums, Clear Oropharnyx Neck: NL Appearance and Movements; NL JVP, Trachea Midline Respiratory: Symmetrical Chest Expansion and Respiratory Effort, Clear to Auscultation Cardiovascular: RRR, - - pain in right chest wall, some bruising Abdominal: NL Sounds; No Tenderness; No Distention Lymphatic: No Cervical Adenopathy, No Axillary Adenopathy Neurological: Alert and Oriented x 3 Result Diagrams: 11/17/18 06:32 11/17/18 06:32 Assess/Plan/Problems-Billing Assessment: 73 yo F h/o parkinsons (on meds after finding home meds from previous neurologist) mostly wheelchair bound pw rib fractures and uncontrolled pain s/p fall with stay notable for worsening kidney fxn - Patient Problems (1) Rib fractures Comment: toradol percocet PT/OT- benefit from [facility] unable to care for self at home (2) Anemia Comment: stable stool occult blood not yet collected (3) Diabetes Comment: metformin restarted now that kidney fx improved monitor, insulin if needed (4) Hypothyroid Comment: synthroid (5) JOSE (acute kidney injury) Comment: stopped lasix improved with NS (6) Cellulitis Comment: RIGHT 5th toe PO keflex day 3/7 Much improved since admission (7) DVT prophylaxis Comment: lovenox Status and Disposition: dc to [facility] if pt amenable
[2018-11-17] MEDS: Allopurinol TAB* 100 MG PO SCH (21:32)
[2018-11-17] MEDS: Montelukast Sodium TAB* 10 MG PO SCH (21:32)
[2018-11-17] MEDS: Mirtazapine TAB* 15 MG PO SCH (21:32)
[2018-11-17] MEDS: Enoxaparin(*) 40 MG/0.4 ML SYR SUBCUT SCH (21:45)
[2018-11-18] MEDS: Ketorolac INJ* 30 MG/ML 1 ML VIAL IV PUSH PRN ×3 (02:18→20:52)
[2018-11-18] MEDS: Levothyroxine TAB* 75 MCG TAB PO SCH (05:50)
[2018-11-18] MEDS: PARoxetine HCL TAB* 20 MG PO SCH (08:37)
[2018-11-18] MEDS: Cephalexin CAP* 500 MG PO SCH ×3 (08:37→21:00)
[2018-11-18] MEDS: Atenolol TAB* 25 MG PO SCH (08:37)
[2018-11-18] MEDS: Aspirin EC TAB* 81 MG TAB.EC PO SCH (08:37)
[2018-11-18] MEDS: buPROPion SR TAB.SR* 150 MG PO SCH ×2 (08:37→21:00)
[2018-11-18] MEDS: Carbidopa/Levodop 25/100 MG TAB(*) PO SCH ×3 (08:38→21:01)
[2018-11-18] MEDS: Gabapentin CAP(*) 300 MG PO SCH ×3 (08:39→21:00)
[2018-11-18] MEDS: metFORMIN* 500 MG TAB PO SCH (08:40)
[2018-11-18] MEDS: Nystatin OINT* 15 GM TOPICAL SCH ×3 (10:43→21:03)
[2018-11-18] MEDS: oxyCODONE/Acetamin 5/325 MG* TAB PO PRN (18:33)
[2018-11-18] MEDS: Enoxaparin(*) 40 MG/0.4 ML SYR SUBCUT SCH (20:57)
[2018-11-18] MEDS: Allopurinol TAB* 100 MG PO SCH (20:59)
[2018-11-18] MEDS: Montelukast Sodium TAB* 10 MG PO SCH (21:00)
[2018-11-18] MEDS: Mirtazapine TAB* 15 MG PO SCH (21:01)
--- NOTE | 2018-11-18 21:01 | PN ---
Subjective Date of Service: 11/18/18 Interval History: Mandy is feeling good today, she has no complaints. She is anxious to get out of the hospital. She has no cough, shortness of breath. She does have pain in the right ribs worsened with deep inspiration but the toradol she gets relieves the pain. No constipation, nausea, diarrhea. Objective Active Medications: Allopurinol (Zyloprim Tab*) 100 mg PO BEDTIME [facility] Last Admin: 11/17/18 21:32 Dose: 100 mg Aspirin (Aspirin Ec Tab*) 81 mg PO DAILY [facility] Last Admin: 11/18/18 08:37 Dose: 81 mg Atenolol (Tenormin Tab*) 25 mg PO DAILY [facility] Last Admin: 11/18/18 08:37 Dose: 25 mg Bupropion HCl (Wellbutrin Sr Tab*) 150 mg PO BID [facility] Last Admin: 11/18/18 08:37 Dose: 150 mg Carbidopa/Levodopa (Sinemet 25/100 Tab(*)) 3 tab PO TID [facility] Last Admin: 11/18/18 13:49 Dose: 3 tab Cephalexin HCl (Keflex Cap*) 500 mg PO TID [facility] Last Admin: 11/18/18 13:50 Dose: 500 mg Enoxaparin Sodium (Lovenox(*)) 40 mg SUBCUT Q24H [facility] Last Admin: 11/17/18 21:45 Dose: 40 mg Gabapentin (Neurontin Cap(*)) 300 mg PO TID [facility] Last Admin: 11/18/18 13:49 Dose: 300 mg Ketorolac Tromethamine (Toradol Inj*) 30 mg IV PUSH Q6H PRN PRN Reason: PAIN Last Admin: 11/18/18 20:52 Dose: 30 mg Levothyroxine Sodium (Synthroid Tab*) 75 mcg PO 0630 [facility] Last Admin: 11/18/18 05:50 Dose: 75 mcg Metformin HCl (Glucophage*) 500 mg PO DAILY [facility] Last Admin: 11/18/18 08:40 Dose: 500 mg Mirtazapine (Remeron Tab*) 15 mg PO BEDTIME [facility] Last Admin: 11/17/18 21:32 Dose: 15 mg Montelukast Sodium (Singulair Tab*) 10 mg PO BEDTIME [facility] Last Admin: 11/17/18 21:32 Dose: 10 mg Nystatin (Nystatin Oint*) 1 applic TOPICAL TID [facility] Last Admin: 11/18/18 13:52 Dose: 1 applic Ondansetron HCl (Zofran Inj*) 4 mg IV Q4H PRN PRN Reason: NAUSEA/VOMITING Oxycodone/Acetaminophen (Percocet 5/325 Tab*) 1 tab PO Q4H PRN PRN Reason: PAIN Last Admin: 11/18/18 18:33 Dose: 1 tab Paroxetine HCl (Paxil Tab*) 20 mg PO QAM [facility] Last Admin: 11/18/18 08:37 Dose: 20 mg Vital Signs - 8 hr 11/18/18 11/18/18 11/18/18 13:49 15:46 18:33 Temperature 96.2 F Pulse Rate 73 Respiratory 16 15 16 Rate Blood Pressure 120/47 (mmHg) O2 Sat by Pulse 96 Oximetry 11/18/18 11/18/18 19:15 20:55 Temperature 98.1 F Pulse Rate 76 Respiratory 18 20 Rate Blood Pressure 121/61 (mmHg) O2 Sat by Pulse 100 Oximetry Oxygen Devices in Use Now: None Appearance: alert, no distress Eyes: No Scleral Icterus Ears/Nose/Mouth/Throat: NL Teeth, Lips, Gums Neck: NL Appearance and Movements; NL JVP Respiratory: Symmetrical Chest Expansion and Respiratory Effort, Clear to Auscultation, - - R chest wall echymosis, mid-axillary line Cardiovascular: NL Sounds; No Murmurs; No JVD, RRR Abdominal: NL Sounds; No Tenderness; No Distention Lymphatic: No Cervical Adenopathy Extremities: No Edema Skin: - - right dorsal foot erythema Neurological: Alert and Oriented x 3, - - no tremor Result Diagrams: 11/17/18 06:32 11/17/18 06:32 Assess/Plan/Problems-Billing Assessment: 73 yo F h/o parkinsons (on meds after finding home meds from previous neurologist) mostly wheelchair bound pw rib fractures and uncontrolled pain s/p fall with stay notable for worsening kidney fxn - Patient Problems (1) Rib fractures Current Visit: Yes Status: Acute Code(s): S22.39XA - FRACTURE OF ONE RIB, UNSP SIDE, INIT FOR CLOS FX SNOMED Code(s): 18661080 Comment: toradol percocet PT/OT- benefit from [facility] unable to care for self at home (2) JOSE (acute kidney injury) Current Visit: Yes Status: Acute Code(s): N17.9 - ACUTE KIDNEY FAILURE, UNSPECIFIED SNOMED Code(s): 66485033 Comment: resolved with ivf (3) Anemia Current Visit: Yes Status: Acute Code(s): D64.9 - ANEMIA, UNSPECIFIED SNOMED Code(s): 707513409 Comment: stable stool occult blood not yet collected (4) Cellulitis Current Visit: Yes Status: Acute Code(s): L03.90 - CELLULITIS, UNSPECIFIED SNOMED Code(s): 202042011 Comment: RIGHT 5th toe PO keflex day 12/01 Much improved since admission Status and Disposition: dc to [facility] if pt amenable
[2018-11-19] MEDS: Levothyroxine TAB* 75 MCG TAB PO SCH (05:47)
[2018-11-19] MEDS: Aspirin EC TAB* 81 MG TAB.EC PO SCH (09:10)
[2018-11-19] MEDS: buPROPion SR TAB.SR* 150 MG PO SCH ×2 (09:10→21:31)
[2018-11-19] MEDS: Cephalexin CAP* 500 MG PO SCH ×3 (09:10→21:31)
[2018-11-19] MEDS: Ketorolac INJ* 30 MG/ML 1 ML VIAL IV PUSH PRN ×2 (09:10→21:27)
[2018-11-19] MEDS: metFORMIN* 500 MG TAB PO SCH (09:11)
[2018-11-19] MEDS: PARoxetine HCL TAB* 20 MG PO SCH (09:11)
[2018-11-19] MEDS: Atenolol TAB* 25 MG PO SCH (09:11)
[2018-11-19] MEDS: Carbidopa/Levodop 25/100 MG TAB(*) PO SCH ×3 (09:11→21:31)
[2018-11-19] MEDS: Gabapentin CAP(*) 300 MG PO SCH ×3 (09:11→21:30)
[2018-11-19] MEDS: Nystatin OINT* 15 GM TOPICAL SCH ×3 (09:16→21:34)
--- NOTE | 2018-11-19 13:13 | PN ---
Subjective Date of Service: 11/19/18 Interval History: Mandy makes jokes with me this morning. She complains of pain in her right ribcage. She has not yet used the incentive spirometer but does it for me and gets 1500. This does not cause pain. Objective Active Medications: Allopurinol (Zyloprim Tab*) 100 mg PO BEDTIME [facility] Last Admin: 11/18/18 20:59 Dose: 100 mg Aspirin (Aspirin Ec Tab*) 81 mg PO DAILY [facility] Last Admin: 11/19/18 09:10 Dose: 81 mg Atenolol (Tenormin Tab*) 25 mg PO DAILY [facility] Last Admin: 11/19/18 09:11 Dose: 25 mg Bupropion HCl (Wellbutrin Sr Tab*) 150 mg PO BID [facility] Last Admin: 11/19/18 09:10 Dose: 150 mg Carbidopa/Levodopa (Sinemet 25/100 Tab(*)) 3 tab PO TID [facility] Last Admin: 11/19/18 09:11 Dose: 3 tab Cephalexin HCl (Keflex Cap*) 500 mg PO TID [facility] Last Admin: 11/19/18 09:10 Dose: 500 mg Enoxaparin Sodium (Lovenox(*)) 40 mg SUBCUT Q24H [facility] Last Admin: 11/18/18 20:57 Dose: 40 mg Gabapentin (Neurontin Cap(*)) 300 mg PO TID [facility] Last Admin: 11/19/18 09:11 Dose: 300 mg Ketorolac Tromethamine (Toradol Inj*) 30 mg IV PUSH Q6H PRN PRN Reason: PAIN Last Admin: 11/19/18 09:10 Dose: 30 mg Levothyroxine Sodium (Synthroid Tab*) 75 mcg PO 0630 [facility] Last Admin: 11/19/18 05:47 Dose: 75 mcg Metformin HCl (Glucophage*) 500 mg PO DAILY [facility] Last Admin: 11/19/18 09:11 Dose: 500 mg Mirtazapine (Remeron Tab*) 15 mg PO BEDTIME [facility] Last Admin: 11/18/18 21:01 Dose: 15 mg Montelukast Sodium (Singulair Tab*) 10 mg PO BEDTIME [facility] Last Admin: 11/18/18 21:00 Dose: 10 mg Nystatin (Nystatin Oint*) 1 applic TOPICAL TID [facility] Last Admin: 11/19/18 09:16 Dose: 1 applic Ondansetron HCl (Zofran Inj*) 4 mg IV Q4H PRN PRN Reason: NAUSEA/VOMITING Oxycodone/Acetaminophen (Percocet 5/325 Tab*) 1 tab PO Q4H PRN PRN Reason: PAIN Last Admin: 11/18/18 18:33 Dose: 1 tab Paroxetine HCl (Paxil Tab*) 20 mg PO QAM [facility] Last Admin: 11/19/18 09:11 Dose: 20 mg Vital Signs - 8 hr 11/19/18 11/19/18 11/19/18 07:26 08:00 09:11 Temperature 97.6 F Pulse Rate 71 Respiratory 20 16 16 Rate Blood Pressure 119/54 (mmHg) O2 Sat by Pulse 99 Oximetry 11/19/18 13:06 Temperature Pulse Rate Respiratory 16 Rate Blood Pressure (mmHg) O2 Sat by Pulse Oximetry Oxygen Devices in Use Now: None Appearance: alert, no distress, somewhat masked face but interacts appropriately Eyes: No Scleral Icterus Ears/Nose/Mouth/Throat: NL Teeth, Lips, Gums Neck: NL Appearance and Movements; NL JVP Respiratory: Symmetrical Chest Expansion and Respiratory Effort, Clear to Auscultation, - - echymosis right chest wall Cardiovascular: NL Sounds; No Murmurs; No JVD Abdominal: NL Sounds; No Tenderness; No Distention Lymphatic: No Cervical Adenopathy Skin: No Rash or Ulcers, - - erythema right dorsal foot, edema and chronic skin changes b/l shins Neurological: Alert and Oriented x 3 Result Diagrams: 11/17/18 06:32 11/17/18 06:32 Assess/Plan/Problems-Billing Assessment: 73 yo F h/o parkinsons (on meds after finding home meds from previous neurologist) mostly wheelchair bound pw rib fractures and uncontrolled pain s/p fall with stay notable for worsening kidney fxn - Patient Problems (1) Rib fractures Current Visit: Yes Status: Acute Code(s): S22.39XA - FRACTURE OF ONE RIB, UNSP SIDE, INIT FOR CLOS FX SNOMED Code(s): 77221438 Comment: toradol percocet PT/OT- benefit from [facility] unable to care for self at home (2) JOSE (acute kidney injury) Current Visit: Yes Status: Acute Code(s): N17.9 - ACUTE KIDNEY FAILURE, UNSPECIFIED SNOMED Code(s): 73110045 Comment: resolved with ivf (3) Anemia Current Visit: Yes Status: Acute Code(s): D64.9 - ANEMIA, UNSPECIFIED SNOMED Code(s): 986052169 Comment: stable stool occult blood not yet collected (4) Cellulitis Current Visit: Yes Status: Acute Code(s): L03.90 - CELLULITIS, UNSPECIFIED SNOMED Code(s): 856650829 Comment: RIGHT 5th toe PO keflex day 12/01 Much improved since admission Status and Disposition: dc to [facility] if pt amenable
[2018-11-19] MEDS: Enoxaparin(*) 40 MG/0.4 ML SYR SUBCUT SCH (21:29)
[2018-11-19] MEDS: Mirtazapine TAB* 15 MG PO SCH (21:31)
[2018-11-19] MEDS: Allopurinol TAB* 100 MG PO SCH (21:31)
[2018-11-19] MEDS: Montelukast Sodium TAB* 10 MG PO SCH (21:31)
[2018-11-20] MEDS: Levothyroxine TAB* 75 MCG TAB PO SCH (06:08)
[2018-11-20 08:14] VITALS: BP 118/57
[2018-11-20] MEDS ORDERED: Docusate CAP* 100 MG PO PRN (08:44)
[2018-11-20] MEDS ORDERED: Bisacodyl SUPP* 10 MG SUPP PR PRN (08:45)
[2018-11-20] MEDS ORDERED: Polyethylene Glycol 3350* 17 GM PACKET PO SCH (09:00)
[2018-11-20] MEDS: Carbidopa/Levodop 25/100 MG TAB(*) PO SCH (09:09)
[2018-11-20] MEDS: buPROPion SR TAB.SR* 150 MG PO SCH (09:09)
[2018-11-20] MEDS: Gabapentin CAP(*) 300 MG PO SCH (09:09)
[2018-11-20] MEDS: Aspirin EC TAB* 81 MG TAB.EC PO SCH (09:09)
[2018-11-20] MEDS: Cephalexin CAP* 500 MG PO SCH (09:10)
[2018-11-20] MEDS: Nystatin OINT* 15 GM TOPICAL SCH (09:10)
[2018-11-20] MEDS: PARoxetine HCL TAB* 20 MG PO SCH (09:10)
[2018-11-20] MEDS: metFORMIN* 500 MG TAB PO SCH (09:10)
[2018-11-20] MEDS: Atenolol TAB* 25 MG PO SCH (09:10)
[2018-11-20] MEDS: Ketorolac INJ* 30 MG/ML 1 ML VIAL IV PUSH PRN (11:18)
--- NOTE | 2018-11-20 13:10 | DS ---
CC: Dr. Jeter* DISCHARGE SUMMARY: DATE OF ADMISSION: 11/14/18 DATE OF DISCHARGE: 11/20/18 PRINCIPAL DISCHARGE DIAGNOSES: 1. Right rib fractures. 2. Mechanical fall. 3. Foot cellulitis. SECONDARY DISCHARGE DIAGNOSES: 1. Parkinson disease. 2. Chronic kidney disease. 3. Hypothyroidism. MEDICATIONS AT THE TIME OF DISCHARGE: 1. Synthroid 75 mcg daily. 2. Singulair 10 mg q.h.s. 3. Aspirin 81 mg daily. 4. Paxil 20 mg daily. 5. Allopurinol 100 mg q.h.s. 6. Wellbutrin SR 150 mg b.i.d. 7. [place] 5/325 1 tab q.6 p.r.n. pain. 8. Mirtazapine 15 mg q.h.s. 9. Gabapentin 300 mg t.i.d. 10. Metformin ER 500 mg daily. 11. Atenolol 25 mg daily. 12. Keflex 500 mg t.i.d. for 5 more days. 13. Sinemet 25/100 three tabs t.i.d. PHYSICAL EXAMINATION AT THE TIME OF DISCHARGE: Temperature 97.4, heart rate 68 , respiratory rate 20, pulse ox 98% on room air, blood pressure 118/57. General : Alert, elderly female, in no distress. She has a mildly masked face. HEENT: Pupils 3 mm bilaterally and reactive to light. Oral mucosa is moist. Neck: No JVP. No adenopathy. Chest: She is in a regular rate and rhythm. Her lungs have a few scattered expiratory wheezes. Her abdomen is obese, soft, nontender, nondistended. She has ecchymosis in the right mid axillary line. Her extremities, she has 2+ edema with a wound on the left anterior horvath and 2 cm area of erythema on her left dorsal surface of the foot. Neurologic: She is oriented x3 and her strength is 5/5 in all extremities. HOSPITAL COURSE BY PROBLEM: 1. Right posterior 4th and 5th rib fractures. This was caused by a mechanical fall. No pneumothorax was noted on x-ray. She is encouraged to use an incentive spirometer. Her pain was managed with Toradol while inpatient. She is being discharged on p.r.n. [place]. This should be weaned as able and she should be encouraged to use incentive spirometer. 2. Mechanical fall. This is likely related to parkinsonism. She had been off of her Sinemet and we restarted it while she was here. She should follow up with Neurology within 1 month. 3. Chronic kidney disease. She had an acute kidney injury while she was here and she was thought to be volume depleted. Lasix was held. Should she develop worsening lower extremity edema, it can be resumed. 4. Hypothyroidism. We continued her Synthroid. 5. Disposition: Ms. Bellamy is being discharged to [facility] [place] for acute rehab. She has agreed on this plan. She should follow up with her primary care physician within 1 week. CONDITION AT THE TIME OF DISCHARGE: Stable. TIME SPENT: Forty minutes was spent on this discharge. [id number]/CPS #: [id number] NIDIA
== END 2018-11-20 12:45 | DRG 184 ==
LOC: ED 11:35 → MED 18:25 → OBSVTOIN 11-15 15:19
PROVIDERS: ADMIT Internal Medicine; ATTEND Internal Medicine
DX: S22.41XA Multiple fractures of ribs, right side, initial encounter for closed fracture (principal); N17.9 Acute kidney failure, unspecified; G20 Parkinson's disease; E11.22 Type 2 diabetes mellitus with diabetic chronic kidney disease; J44.9 Chronic obstructive pulmonary disease, unspecified; D64.9 Anemia, unspecified; N18.9 Chronic kidney disease, unspecified; I12.9 Hypertensive chronic kidney disease with stage 1 through stage 4 chronic kidney disease, or unspecified chronic kidney disease; E03.9 Hypothyroidism, unspecified; L03.031 Cellulitis of right toe; E78.5 Hyperlipidemia, unspecified; W18.30XA Fall on same level, unspecified, initial encounter; Y92.9 Unspecified place or not applicable; Z79.84 Long term (current) use of oral hypoglycemic drugs; Z79.82 Long term (current) use of aspirin; Z79.899 Other long term (current) drug therapy; Z83.3 Family history of diabetes mellitus; Z82.3 Family history of stroke; Z82.49 Family history of ischemic heart disease and other diseases of the circulatory system; Z83.511 Family history of glaucoma; Z99.3 Dependence on wheelchair
CPT/HCPCS: 36415; 71046; 80048; 80053; 81003; 82272; 82550; 83605; 83735; 84439; 84443; 84481; 84484; 85014; 85018; 85025; 93005; 99284; A9270-GY; G0378; G8978-GP-CM; G8979-GP-CI; G8987-GO-CL; G8988-GO-CI; J1650; J1885